=== PATIENT | male | born 1965 | race Caucasian/White ===

== ENCOUNTER 2022-03-17 09:10 | Inpatient (IN) | payer OTHER ==
[~2022-03-17] VITALS: Ht 167.6 cm; Wt 89.8 kg
--- NOTE | 2022-03-17 09:22 | NUR ---
MONISHA Curiel FROM HOME FOUND ON THE FLOOR, PT WAS DRINKING LAST NIGHT. ATTACHED TO MONITOR, HERAT RATE I ELEVATED, AWARE. PT PLACED ON 3L NC. DR PERLA AT BEDSIDE, AWAITING ORDERS.
[2022-03-17] MEDS ORDERED: IV NS 0.9% 1,000 ML BAG IV ONE (09:30)
[2022-03-17 10:03] LABS: BASOPHILS # (AUTO) 0.1 K/uL (0.0-0.2); BASOPHILS % (AUTO) 0.8 % (0.0-2.0); EOSINOPHILS % (AUTO) 0.1 % (0.0-6.0); HEMATOCRIT 39 % (39-51); HEMOGLOBIN 12.7 g/dL (13.5-17.5); LYMPHOCYTES % (AUTO) 10.3 % (20.0-44.0); MEAN CORPUSCULAR HGB CONC 33 g/dl (31.0-36.0); MEAN CORPUSCULAR VOLUME 93 fL (80-96); MONOCYTES # (AUTO) 0.5 K/uL (0.1-1.30); MONOCYTES % (AUTO) 5.5 % (2.0-12.0); NEUTROPHILS # (AUTO) 7.8 K/uL (1.8-8.9); NEUTROPHILS % (AUTO) 83.3 % (43.0-81.0); PLATELET COUNT (AUTO) 100 K/uL (150-450); RED BLOOD CELL COUNT(AUTO) 4.19 MIL/uL (4.5-6.0); WHITE BLOOD COUNT (AUTO) 9.4 K/uL (4.3-11.0)
[2022-03-17 10:26] LABS: ALANINE AMINOTRANSFERASE 124 U/L (12-78); ALBUMIN 3.3 g/dL (3.4-5.0); ALKALINE PHOSPHATASE 56 U/L (46-116); ASPARTATE AMINOTRANSFERASE 211 U/L (15-37); BILIRUBIN,DIRECT 0.4 mg/dL (0.0-0.2); BILIRUBIN,TOTAL 0.8 mg/dL (0.2-1.0); CALCIUM, SERUM 8.5 mg/dL (8.5-10.1); CARBON DIOXIDE 21 mmol/L (21-32); CHLORIDE 102 mmol/L (98-107); CREATININE 0.9 mg/dL (0.6-1.3); GLUCOSE 103 mg/dL (74-106); SODIUM SERUM 140 mmol/L (136-145); TOTAL PROTEIN, SERUM 7.2 g/dL (6.4-8.2); UREA NITROGEN, BLOOD 11 mg/dL (7-18)
[2022-03-17 10:32] LABS: MAGNESIUM 1.6 mg/dL (1.8-2.4)
[2022-03-17 10:33] LABS: THYROID STIMULATING HORMONE 0.493 uIU/mL (0.358-3.74)
[2022-03-17 10:36] LABS: SERUM AMMONIA 19 umol/L (11-32)
--- NOTE | 2022-03-17 10:53 | NUR ---
DORA COLLECTED AND SENT
[2022-03-17] MEDS ORDERED: LORAZEPAM 1 MG TABLET PO ONE (11:30)
--- NOTE | 2022-03-17 11:40 | NUR ---
URINE COLLECTED AND SENT TO LAB
--- NOTE | 2022-03-17 11:42 | NUR ---
CALLED NURSING SUP REGARDING PT BED
[2022-03-17] MEDS ORDERED: LORAZEPAM 1 MG TABLET ONE (11:49)
--- NOTE | 2022-03-17 12:38 | NUR ---
STEVEN MOTHER LEFT CONTACT # [phone]
--- NOTE | 2022-03-17 12:58 | NUR ---
GOING TO TELE 309.1, ADMITTING AWARE.
--- NOTE | 2022-03-17 13:08 | NUR ---
REPORT GIVEN TO NURSE COFFMAN FOR MARTI
--- NOTE | 2022-03-17 13:31 | NUR ---
THE PATIENT IS TAKEN TO ROOM 309 IN STABLE CONDITON AND PER ACLS POLICY.
[2022-03-17] MEDS ORDERED: ONDANSETRON HCL/PF 4 MG/2 ML VIAL IVP PRN (15:00)
[2022-03-17] MEDS ORDERED: MAGNESIUM HYDROXIDE 30 ML UDC PO PRN (15:00)
[2022-03-17] MEDS ORDERED: POTASSIUM CHLORIDE 20 MEQ TAB.PRT.SR PO ONE (15:00)
[2022-03-17] MEDS: THIAMINE HCL 100 MG TABLET PO SCH (16:05)
[2022-03-17] MEDS: FOLIC ACID 1 MG TABLET PO SCH (16:05)
[2022-03-17] MEDS: IV NS 0.9% 1,000 ML IV PRN (16:05)
[2022-03-17] MEDS: CHLORDIAZEPOXIDE HCL 25 MG CAPSULE PO SCH ×2 (16:05→20:21)
[2022-03-17] MEDS: CEFTRIAXONE 1 G in IV D5W 50 ML IV SCH (18:29)
--- NOTE | 2022-03-17 19:00 | NUR ---
RN opening notes Received Pt from morning nurse. Pt is sitting in bed comfortably. Pt is alert and orientedX2-3 with episode of confusion. On 2 L NC. No SOB. No S/s of distress noted. IV site at NIRAJ# 20 is clean, intact and infusing well NS@ 100ml/hr. Pt keep refusing tele monitor. Explained risks and benefits. Dr. Fajardo is aware and informed. Safety precautions is maintained. Bed at low position, brakes locked, side rails upX3, bed alarm is on, hob elevated and call light is within reach. Will continue to monitor.
--- NOTE | 2022-03-17 19:04 | NUR ---
RN NOTE PT LYING IN BED, IN O2 VIA NC @2L. NOT IN RESPI DISTRESS. WITH IV ACCESS ON NIRAJ G20 WITH IVF NS @100. TOLERATING WELL. DUE MEDS GIVEN, SAFETY MAINTAINED. PM CARE RENDERED.
[2022-03-17 20:00] VITALS: BP 134/84
--- NOTE | 2022-03-17 20:14 | NUR ---
RN notes Pt is trying to get out the bed many times. Pt is not following command and directions. Explained several times. informed and notified Dr. Fajardo. ordered ativan 2mg/iv/once. Order carry out.
[2022-03-17] MEDS ORDERED: LORAZEPAM INJ 2 MG/ML VIAL IV ONE (20:30)
--- NOTE | 2022-03-17 20:31 | NUR ---
RN notes Administered ativan 2 mg/iv/one time as ordered per MD ordered. Safety precautions is maintained. Will continue to monitor.
--- NOTE | 2022-03-17 22:05 | NUR ---
RN notes Pt is trying to get out the bed and keep removing lines and equipments many times. Informed and notified Dr. Ramsay. Pt is not following commands and directions. MD ordered for a sitter. Charge nurse is aware and informed. Ordered carry out. Will continue to monitor.
[2022-03-18] VITALS: BP 142/81
[2022-03-18] MEDS: IV NS 0.9% 1,000 ML IV PRN ×2 (02:13→10:58)
[2022-03-18 04:00] VITALS: BP 123/90
[2022-03-18] MEDS: CHLORDIAZEPOXIDE HCL 25 MG CAPSULE PO SCH ×3 (04:39→20:28)
[2022-03-18 06:06] LABS: BASOPHILS # (AUTO) 0.1 K/uL (0.0-0.2); BASOPHILS % (AUTO) 0.9 % (0.0-2.0); EOSINOPHILS % (AUTO) 0.7 % (0.0-6.0); HEMATOCRIT 38 % (39-51); HEMOGLOBIN 12.5 g/dL (13.5-17.5); LYMPHOCYTES # (AUTO) 1.1 K/uL (0.8-4.8); LYMPHOCYTES % (AUTO) 12.7 % (20.0-44.0); MEAN CORPUSCULAR HGB CONC 33 g/dl (31.0-36.0); MEAN CORPUSCULAR VOLUME 91 fL (80-96); MONOCYTES # (AUTO) 0.5 K/uL (0.1-1.30); MONOCYTES % (AUTO) 6.2 % (2.0-12.0); NEUTROPHILS # (AUTO) 6.7 K/uL (1.8-8.9); NEUTROPHILS % (AUTO) 79.5 % (43.0-81.0); PLATELET COUNT (AUTO) 99 K/uL (150-450); RED BLOOD CELL COUNT(AUTO) 4.12 MIL/uL (4.5-6.0); WHITE BLOOD COUNT (AUTO) 8.5 K/uL (4.3-11.0)
--- NOTE | 2022-03-18 06:40 | NUR ---
RN closing notes Pt is laying in bed comfortably. Pt is alert and orientedX2 with episode of confusion. On 2 L NC. No SOB. No S/s of distress noted. Routine meds were given as ordered. IV site at NIRAJ# 20 is clean, intact and infusing well NS@ 100ml/hr. Kept Pt clean, dry and comfortable. Safety precautions is maintained. Bed at low position, brakes locked, side rails upX3, bed alarm is on, hob elevated and call light is within reach. Will endorse to am nurse for MARTI.
[2022-03-18 06:53] LABS: ALBUMIN 2.8 g/dL (3.4-5.0); BILIRUBIN,DIRECT 0.4 mg/dL (0.0-0.2); BILIRUBIN,TOTAL 0.8 mg/dL (0.2-1.0); CALCIUM, SERUM 8.3 mg/dL (8.5-10.1); CREATININE 0.8 mg/dL (0.6-1.3); MAGNESIUM 1.5 mg/dL (1.8-2.4); PHOSPHORUS 2.1 mg/dL (2.5-4.9); POTASSIUM 3.3 mmol/L (3.5-5.1); TOTAL PROTEIN, SERUM 6.5 g/dL (6.4-8.2)
--- NOTE | 2022-03-18 07:20 | NUR ---
RN opening notes Received patient in bed. Pt is alert and oriented X2-3 with episodes of confusion. On 2 L NC saturating at 94%. No SOB. No S/s of distress noted. With IV site at NIRAJ# 20 with IVF of NS@ 100ml/hr. Pt keep refusing tele monitor. Dr. Fajardo is aware. Safety precautions is maintained. Bed at low position, brakes locked, side rails upX3, bed alarm is on, hob elevated and call light is within reach. Will continue to monitor.
[2022-03-18] MEDS: PANTOPRAZOLE 40 MG TABLET.DR PO SCH (07:52)
[2022-03-18] MEDS: FOLIC ACID 1 MG TABLET PO SCH (08:25)
[2022-03-18] MEDS: THIAMINE HCL 100 MG TABLET PO SCH (08:25)
[2022-03-18] MEDS ORDERED: LORAZEPAM INJ 2 MG/ML VIAL IV PRN (10:30)
[2022-03-18] MEDS ORDERED: Magnesium 1GM/D5W 100ML PREMIX 100 ML IV SCH (11:00)
[2022-03-18] MEDS ORDERED: POTASSIUM CHLORIDE 20 MEQ POWDER PACKET PO ONE (11:00)
[2022-03-18 11:31] LABS: BAND % (MANUAL) 2 % (0.0-5.0); LYMPHOCYTES % (MANUAL) 18 % (16-48); MONOCYTES % (MANUAL) 9 % (0-11.0); NEUTROPHILS % (MANUAL) 71 (42-76)
[2022-03-18 11:32] LABS: BASOPHILS % (MANUAL) 0 % (0.0-2.0); EOSINOPHILS % (MANUAL) 0 % (0-4)
[2022-03-18] MEDS: CEFTRIAXONE 1 G in IV D5W 50 ML IV SCH (15:30)
[2022-03-18] MEDS ORDERED: K PHOS NEUTRAL 250 MG TABLET PO ONE (15:30)
--- NOTE | 2022-03-18 18:51 | NUR ---
RN CLOSING NOTES Patient in bed. Pt is alert and oriented X2-3 with episodes of confusion. On 2 L NC saturating at 97%. No SOB. No S/s of distress noted. With IV site at NIRAJ# 20 with IVF of NS@ 150ml/hr. Pt keep refusing tele monitor. Dr. Fajardo is aware. Safety precautions is maintained. Bed at low position, brakes locked, side rails upX3, bed alarm is on, hob elevated and call light is within reach. Sitter at bedside. Will endorse to night nurse for continuity of care.
--- NOTE | 2022-03-18 18:51 | NUR ---
RESIDENT CAREGIVER CLOSING NOTES PATIENT RESTING IN BED COMFORTABLY, A/OX1, CONFUSED; PATIENT ON OXYGEN AT 4LPM VIA NASAL CANULA WITH BREATHING EVEN AND UNLABORED; PATIENT ON TELE MONITOR CONTROLLED A.FIB AND SINUS PILAR WHEN SLEEPING AT 57. PATIENT WITH G-TUBE FEEDING ON JEVITY 1.2 AT 55ML/HR, TOLERATING FEEDING WELL. WITH IV ACCESS ON L AC #20g ON SALINE LOCK, PATENT AND INTACT.WITH BILATERAL RESTRAINTS WITH GOOD CIRCULATION AND NO COMPLAINTS OF DISCOMFORT AT THIS TIME. SAFETY PRECAUTIONS IN PLACE WITH BED LOCKED IN LOW POSITION; SIDE RAILSX3, CALL LIGHT WITHIN REACH; WILL ENSORSE TO NIGHT NURSE FOR CONTINUITY OF CARE. Addendum: 03/18/22 at 1853 by ANETTE NUNES RN ERROR. DISREGARD ABOVE NOTES, WRONG PATIENT
--- NOTE | 2022-03-18 19:00 | NUR ---
RN opening notes Pt is laying in bed comfortably with a sitter at the bedside. Pt is alert and orientedX2-3 with episode of confusion. On 2 L NC. No SOB. No S/s of distress noted. IV site at NIRAJ# 20 is clean, intact and infusing well NS@ 100ml/hr. Pt refuses tele monitor. Explained risks and benefits. Safety precautions is maintained. Sitter at the bedside. Bed at low position, brakes locked, side rails upX3, bed alarm is on, hob elevated and call light is within reach. Will continue to monitor.
[2022-03-18 20:00] VITALS: BP 139/76
[2022-03-19] VITALS: BP 139/90
[2022-03-19] MEDS: IV NS 0.9% 1,000 ML IV PRN ×3 (00:26→23:22)
[2022-03-19] MEDS: PANTOPRAZOLE 40 MG TABLET.DR PO SCH (07:30)
--- NOTE | 2022-03-19 07:30 | NUR ---
RN OPENING NOTES Patient in bed. Pt is alert and oriented X2-3 with episodes of confusion. On 2 L NC saturating at 98%. No SOB, No S/s of distress noted. IV site at NIRAJ# 20 with IVF of NS@ 150ml/hr, right foot iv access patent and intact. Patient keep refusing tele monitor. Dr. Fajardo is aware. Safety precautions is maintained. Bed at low position, brakes locked, side rails upX3, bed alarm is on, HOB elevated and call light is within reach. Sitter at bedside. Will continue to monitor accordingly
--- NOTE | 2022-03-19 07:30 | NUR ---
RN closing notes Pt is laying in bed comfortably. Pt is alert and orientedX2 with episode of confusion. On 2 L NC. No SOB. No S/s of distress noted. Routine meds were given as ordered. IV site at NIRAJ# 20 is clean, intact and infusing well NS@ 150ml/hr. Iv at R foot #20 is clean and intact. Kept Pt clean, dry and comfortable. Sitter at the bedside. Safety precautions is maintained. Bed at low position, brakes locked, side rails upX3, bed alarm is on, hob elevated and call light is within reach. Will endorse to am nurse for MARTI.
[2022-03-19 08:00] VITALS: BP 135/97
--- NOTE | 2022-03-19 08:15 | NUR ---
protonix non administer, given by the night nurse signed at paper MAR
[2022-03-19 08:23] LABS: BASOPHILS % (AUTO) 0.7 % (0.0-2.0); EOSINOPHILS % (AUTO) 3.1 % (0.0-6.0); HEMATOCRIT 36 % (39-51); LYMPHOCYTES # (AUTO) 1.5 K/uL (0.8-4.8); LYMPHOCYTES % (AUTO) 25.2 % (20.0-44.0); MEAN CORPUSCULAR HGB CONC 34 g/dl (31.0-36.0); MEAN CORPUSCULAR VOLUME 92 fL (80-96); MONOCYTES # (AUTO) 0.5 K/uL (0.1-1.30); MONOCYTES % (AUTO) 7.8 % (2.0-12.0); NEUTROPHILS # (AUTO) 3.7 K/uL (1.8-8.9); NEUTROPHILS % (AUTO) 63.2 % (43.0-81.0); PLATELET COUNT (AUTO) 106 K/uL (150-450); RED BLOOD CELL COUNT(AUTO) 3.86 MIL/uL (4.5-6.0); WHITE BLOOD COUNT (AUTO) 5.8 K/uL (4.3-11.0)
[2022-03-19] MEDS: THIAMINE HCL 100 MG TABLET PO SCH (08:55)
[2022-03-19] MEDS: FOLIC ACID 1 MG TABLET PO SCH (08:55)
[2022-03-19 09:25] LABS: CALCIUM, SERUM 7.6 mg/dL (8.5-10.1); CREATININE 0.8 mg/dL (0.6-1.3); MAGNESIUM 1.8 mg/dL (1.8-2.4); PHOSPHORUS 3.5 mg/dL (2.5-4.9); POTASSIUM 3.1 mmol/L (3.5-5.1)
[2022-03-19 12:00] VITALS: BP 110/58
[2022-03-19] MEDS ORDERED: LEVETIRACETAM (250 MG) 250 MG TABLET PO SCH (12:00)
[2022-03-19] MEDS ORDERED: clonazePAM 1 MG TABLET PO PRN (12:00)
[2022-03-19] MEDS: LORATADINE 10 MG TABLET PO SCH (12:37)
[2022-03-19] MEDS: DIVALPROEX SODIUM 500 MG TABLET.DR PO SCH ×2 (12:37→21:03)
[2022-03-19] MEDS: busPIRone 5 MG TABLET PO SCH ×2 (12:37→17:36)
[2022-03-19] MEDS: FINASTERIDE (5 MG) 5 MG TABLET PO SCH (12:37)
[2022-03-19] MEDS: CHLORDIAZEPOXIDE HCL 25 MG CAPSULE PO SCH ×2 (12:37→21:03)
[2022-03-19] MEDS: CEFTRIAXONE 1 G in IV D5W 50 ML IV SCH (14:28)
[2022-03-19 16:00] VITALS: BP 116/90
[2022-03-19] MEDS: POTASSIUM CHLORIDE 20 MEQ TAB.PRT.SR PO SCH ×2 (16:16→17:37)
[2022-03-19] MEDS: ACETAMINOPHEN 325 MG TABLET PO PRN (18:12)
--- NOTE | 2022-03-19 18:50 | NUR ---
RN CLOSING NOTES Patient in bed. alert and oriented X2-3 with episodes of confusion. On 2 L NC saturating at 98%. No SOB, No S/s of distress noted. IV site at NIRAJ# 20 with IVF of NS@ 150ml/hr, right foot iv access patent and intact. Patient keep refusing tele monitor. Dr. Fajardo is aware. Safety precautions is maintained. Bed at low position, brakes locked, side rails upX3, bed alarm is on, HOB elevated and call light is within reach. Sitter at bedside. Needs attended and anticipated. Will endorse to night nurse for continuity of care
--- NOTE | 2022-03-19 19:25 | NUR ---
CARROT BUNCHER OPENING NOTE PATIENT IN BED, ALERT/ORIENTED X 2 WITH PERIODS OF CONFUSION. PT STABLE ON 2 LPM OF OXGEN VIA NASAL CANNULA, NO S/S OF DISTRESS OR SOB NOTED, BREATHING EVEN AND UNLABORED. RIGHT FOOT IV ACCESS INTACT AND INFUSING NS @ 150 ML/HR, NIRAJ IV ACCESS INTACT AND SALINE LOCKED. PATIENT CONTINUES TO REFUSE TELE MONITOR, EXPLAINED RISKS AND BENEFIT BUT PT STILL REFUSED. SAFETY MEASURES IN PLACE: CALL LIGHT WITHIN REACH, SIDE RAILS UP X 3, BED LOCKED IN LOWEST POSITION, BED ALARM ON. WILL CONTINUE TO MONITOR PATIENT
[2022-03-19 20:00] VITALS: BP 122/87
[2022-03-19] MEDS: NEOMY SULF/BACITRAC ZN/POLY 15 GM TUBE TP SCH (21:00)
[2022-03-19] MEDS: ATORVASTATIN 10 MG TABLET PO SCH (21:03)
[2022-03-19] MEDS: ZIPRASIDONE 20 MG CAPSULE PO SCH (21:04)
[2022-03-19] MEDS ORDERED: DOXEPIN HCL 10 MG CAPSULE PO PRN (22:00)
[2022-03-19] MEDS: SERTRALINE HCL 50 MG TABLET PO SCH (22:04)
[2022-03-19] MEDS: clonazePAM 1 MG TABLET PO SCH (22:04)
[2022-03-19] MEDS: OLANZAPINE 10 MG TABLET PO SCH (22:39)
[2022-03-19] MEDS: QUETIAPINE FUMARATE 100 MG TABLET PO SCH (23:00)
--- NOTE | 2022-03-19 23:00 | NUR ---
QUANTITATIVE SOFTWARE ENGINEER NOTE PATIENT ATTEMPTING TO GET OUT OF BED, PULLED OUT RIGHT FOOT IV ACCESS. NIRAJ #20G IV ACCESS INTACT AND FLUSHING WELL, NOW INFUSING NS @ 150 ML/HR
--- NOTE | 2022-03-20 00:33 | NUR ---
COPY CHASER NOTE PATIENT REFUSED MIDNIGHT VITALS, HOWEVER, PER LUCHO SAINI DNP NOTE FROM TODAY, DOWNGRADE PATIENT TO MS Addendum: 03/20/22 at 0236 by TITA ARAGON RN [facility] 03/19/22
[2022-03-20] MEDS: CHLORDIAZEPOXIDE HCL 25 MG CAPSULE PO SCH ×3 (05:22→21:25)
[2022-03-20] MEDS: ACETAMINOPHEN 325 MG TABLET PO PRN ×3 (05:56→21:27)
[2022-03-20] MEDS: IV NS 0.9% 1,000 ML IV PRN ×2 (06:04→15:07)
--- NOTE | 2022-03-20 06:39 | NUR ---
MS RN CLOSING NOTE PATIENT SLEEPING IN BED, ALERT/ORIENTED X 2 WITH PERIODS OF CONFUSION. PT STABLE ON 2 LPM OF OXGEN VIA NASAL CANNULA, NO S/S OF DISTRESS OR SOB NOTED, BREATHING EVEN AND UNLABORED. NIRAJ #20G IV ACCESS INTACT AND INFUSING NS @ 150 ML/HR. MEDICATIONS GIVEN ORDERED, PT NEEDS MET THROUGHOUT SHIFT. PATIENT ATTEMPTED TO GET OUT OF BED A COUPLE TIMES TO USE BATHROOM, WAS ABLE TO AMBULATE WITH SBA. RIGHT FOOT IV ACCESS PULLED OUT WHEN ATTEMPTING TO GET OUT OF BED. PER LUCHO SAINI NOTE, DOWNGRADE TO MS, PT NOT ON TELE MONITOR. SAFETY MEASURES IN PLACE: CALL LIGHT WITHIN REACH, SIDE RAILS UP X 3, BED LOCKED IN LOWEST POSITION, BED ALARM ON. WILL ENDORSE TO DAY SHIFT NURSE FOR CONTINUITY OF CARE
--- NOTE | 2022-03-20 07:15 | NUR ---
RN OPENING NOTE PATIENT IN BED AWAKE, A/O X 2 WITH PERIODS OF CONFUSION. ON O2 @2 LPM VIA NASAL CANNULA, NO S/S OF DISTRESS OR SOB NOTED, BREATHING EVEN AND UNLABORED. NOTED IV ACCESS ON RIGHT UPPER ARM #20G, INTACT AND PATENT, INFUSING NS @ 150 ML/HR. SAFETY MEASURES IN PLACE. BED IN LOWEST AND LOCKED POSITION, BED ALARM ON, SIDE RAILS UP X4, CALL LIGHT PLACED WITHIN EASY REACH, WILL CONTINUE TO MONITOR PATIENT.
[2022-03-20 08:17] VITALS: BP 118/82
[2022-03-20] MEDS: THIAMINE HCL 100 MG TABLET PO SCH (08:52)
[2022-03-20] MEDS: busPIRone 5 MG TABLET PO SCH ×3 (08:52→17:06)
[2022-03-20] MEDS: LORATADINE 10 MG TABLET PO SCH (08:52)
[2022-03-20] MEDS: FINASTERIDE (5 MG) 5 MG TABLET PO SCH (08:52)
[2022-03-20] MEDS: PANTOPRAZOLE 40 MG TABLET.DR PO SCH (08:52)
[2022-03-20] MEDS: DIVALPROEX SODIUM 500 MG TABLET.DR PO SCH ×2 (08:52→21:24)
[2022-03-20] MEDS: FOLIC ACID 1 MG TABLET PO SCH (08:52)
[2022-03-20] MEDS: NEOMY SULF/BACITRAC ZN/POLY 15 GM TUBE TP SCH (10:56)
[2022-03-20] MEDS ORDERED: AMOX-427 PO (11:08)
[2022-03-20] MEDS ORDERED: CLON1TAB12 PO (11:08)
[2022-03-20] MEDS ORDERED: DOXE10CA PO (11:08)
[2022-03-20] MEDS ORDERED: ATOR10TA PO (11:08)
[2022-03-20] MEDS ORDERED: Folic Acid PO (11:08)
[2022-03-20] MEDS ORDERED: SERT50TA PO (11:08)
[2022-03-20] MEDS ORDERED: LORA10TA7 PO (11:08)
[2022-03-20] MEDS ORDERED: BUSP5TAB3 PO (11:08)
[2022-03-20] MEDS ORDERED: Quetiapine Fumarate PO (11:08)
[2022-03-20] MEDS ORDERED: FINA5TAB3 PO (11:08)
[2022-03-20] MEDS ORDERED: ZIPR20CA2 PO (11:08)
[2022-03-20] MEDS ORDERED: DIVA500T2 PO (11:08)
[2022-03-20] MEDS ORDERED: Olanzapine PO (11:08)
[2022-03-20 11:51] LABS: BASOPHILS # (AUTO) 0.1 K/uL (0.0-0.2); BASOPHILS % (AUTO) 1.3 % (0.0-2.0); HEMATOCRIT 35 % (39-51); HEMOGLOBIN 11.5 g/dL (13.5-17.5); LYMPHOCYTES # (AUTO) 1.5 K/uL (0.8-4.8); LYMPHOCYTES % (AUTO) 37.5 % (20.0-44.0); MEAN CORPUSCULAR HGB CONC 33 g/dl (31.0-36.0); MEAN CORPUSCULAR VOLUME 92 fL (80-96); MONOCYTES # (AUTO) 0.5 K/uL (0.1-1.30); MONOCYTES % (AUTO) 12.9 % (2.0-12.0); NEUTROPHILS # (AUTO) 1.8 K/uL (1.8-8.9); NEUTROPHILS % (AUTO) 44.3 % (43.0-81.0); PLATELET COUNT (AUTO) 127 K/uL (150-450); RED BLOOD CELL COUNT(AUTO) 3.79 MIL/uL (4.5-6.0)
[2022-03-20 12:04] LABS: CALCIUM, SERUM 7.5 mg/dL (8.5-10.1); CREATININE 0.7 mg/dL (0.6-1.3); PHOSPHORUS 3.3 mg/dL (2.5-4.9); POTASSIUM 3.2 mmol/L (3.5-5.1)
[2022-03-20 14:09] LABS: BAND % (MANUAL) 7 % (0.0-5.0); EOSINOPHILS % (MANUAL) 5 % (0-4); LYMPHOCYTES % (MANUAL) 32 % (16-48); MONOCYTES % (MANUAL) 13 % (0-11.0); NEUTROPHILS % (MANUAL) 43 (42-76)
[2022-03-20] MEDS: CEFTRIAXONE 1 G in IV D5W 50 ML IV SCH (15:07)
[2022-03-20 16:04] VITALS: BP 135/76
[2022-03-20] MEDS ORDERED: POTASSIUM CHLORIDE 20 MEQ TAB.PRT.SR PO ONE (18:00)
--- NOTE | 2022-03-20 18:48 | NUR ---
RN CLOSING NOTES PATIENT IN BED ASLEEP, REMAINS A/O X 2 WITH PERIODS OF CONFUSION. CONTINUE ON O2 @2 LPM VIA NASAL CANNULA, NO SOB NOTED, BREATHING EVEN AND UNLABORED. NEW IV ACCESS ON LEFT FORE ARM #22G, INTACT AND PATENT WITH NS @ 150 ML/HR INFUSING WELL. SAFETY MEASURES MAINTAINED. BED IN LOWEST AND LOCKED POSITION, BED ALARM ON, SIDE RAILS UP X4, CALL LIGHT PLACED WITHIN EASY REACH, WILL ENDORSE TO NEXT SHIFT FOR MARTI.
--- NOTE | 2022-03-20 19:20 | NUR ---
MS RN OPENING NOTE RECEIVED PATIENT IN BED; AWAKE, ALERT AND ORIENTED X2 WITH PERIODS OF CONFUSION. ON O2 INHALATION @2 LPM VIA NASAL CANNULA; TOLERATING WELL. BREATHING EVEN AND NONLABORED. NO SOB NOTED. IN NO ACUTE DISTRESS. WITH IV ACCESS ON LEFT FOREARM 20G; INTACT AND PATENT INFUSING WITH NS @ 150 ML/HR; FLUSHES WELL. SAFETY MEASURES IMPLEMENTED; CALL LIGHT WITHIN REACH, SIDE RAILS UP X2, BED IN LOWEST LOCKED POSITION. WILL CONTINUE TO MONITOR PATIENT.
[2022-03-20 20:00] VITALS: BP 142/94
[2022-03-20 21:15] VITALS: BP 142/94
[2022-03-20] MEDS: ZIPRASIDONE 20 MG CAPSULE PO SCH (21:25)
[2022-03-20] MEDS: QUETIAPINE FUMARATE 100 MG TABLET PO SCH (21:26)
[2022-03-20] MEDS: ATORVASTATIN 10 MG TABLET PO SCH (21:26)
[2022-03-20] MEDS: clonazePAM 1 MG TABLET PO SCH (21:26)
[2022-03-20] MEDS: SERTRALINE HCL 50 MG TABLET PO SCH (21:27)
[2022-03-20] MEDS: OLANZAPINE 10 MG TABLET PO SCH (21:27)
[2022-03-21] MEDS: ACETAMINOPHEN 325 MG TABLET PO PRN ×2 (04:19→09:56)
[2022-03-21] MEDS: CHLORDIAZEPOXIDE HCL 25 MG CAPSULE PO SCH ×2 (04:19→12:53)
--- NOTE | 2022-03-21 05:20 | NUR ---
RN NOTE IV SITE LEAKING; PRESSURE DRESSING DONE. MULTIPLE ATTEMPTS OF REINSERTION DONE. PATIENT REFUSED TO HAVE IV REINSERTION AGAIN OF THIS TIME.
--- NOTE | 2022-03-21 07:00 | NUR ---
MS RN CLOSING NOTE PATIENT IN BED; AWAKE, A/O X2 WITH PERIODS OF CONFUSION. ON O2 INHALATION @2 LPM VIA NASAL CANNULA; TOLERATING WELL. RESPIRATION EVEN AND NONLABORED. NO SOB NOTED. IN NO ACUTE DISTRESS. ALL DUE MEDS GIVEN ORDERED. NO IV ACCESS. SAFETY MEASURES IN PLACE; CALL LIGHT WITHIN REACH, SIDE RAILS UP X2, BED IN LOWEST LOCKED POSITION. ENDORSED TO MORNING SHIFT FOR MARTI.
--- NOTE | 2022-03-21 07:10 | NUR ---
ms rn received on bed, awake,alert,oriented x4, no iv at this time, md aware per night rn, respirations even and unlabored,no sob noted,abdomen soft,positive bowel sounds,denies pain at this time, will monitor patient.
[2022-03-21 07:48] LABS: HEMATOCRIT 35 % (39-51); HEMOGLOBIN 11.5 g/dL (13.5-17.5); MEAN CORPUSCULAR HGB CONC 33 g/dl (31.0-36.0); MEAN CORPUSCULAR VOLUME 92 fL (80-96); RED BLOOD CELL COUNT(AUTO) 3.81 MIL/uL (4.5-6.0); WHITE BLOOD COUNT (AUTO) 4.6 K/uL (4.3-11.0)
[2022-03-21 07:49] LABS: BASOPHILS % (AUTO) 1.1 % (0.0-2.0); EOSINOPHILS % (AUTO) 3.2 % (0.0-6.0); LYMPHOCYTES # (AUTO) 1.9 K/uL (0.8-4.8); LYMPHOCYTES % (AUTO) 40.1 % (20.0-44.0); MONOCYTES # (AUTO) 0.7 K/uL (0.1-1.30); MONOCYTES % (AUTO) 14.9 % (2.0-12.0); NEUTROPHILS # (AUTO) 1.9 K/uL (1.8-8.9); NEUTROPHILS % (AUTO) 40.7 % (43.0-81.0); PLATELET COUNT (AUTO) 143 K/uL (150-450)
[2022-03-21 07:54] LABS: CREATININE 0.8 mg/dL (0.6-1.3); MAGNESIUM 1.8 mg/dL (1.8-2.4); PHOSPHORUS 3.3 mg/dL (2.5-4.9); POTASSIUM 3.4 mmol/L (3.5-5.1)
[2022-03-21 08:00] VITALS: BP 141/96
[2022-03-21] MEDS: FOLIC ACID 1 MG TABLET PO SCH (08:50)
[2022-03-21] MEDS: LORATADINE 10 MG TABLET PO SCH (08:51)
[2022-03-21] MEDS: FINASTERIDE (5 MG) 5 MG TABLET PO SCH (08:51)
[2022-03-21] MEDS: busPIRone 5 MG TABLET PO SCH ×2 (08:51→12:55)
[2022-03-21] MEDS: DIVALPROEX SODIUM 500 MG TABLET.DR PO SCH (08:51)
[2022-03-21] MEDS: PANTOPRAZOLE 40 MG TABLET.DR PO SCH (08:51)
[2022-03-21] MEDS: THIAMINE HCL 100 MG TABLET PO SCH (08:51)
[2022-03-21] MEDS: NEOMY SULF/BACITRAC ZN/POLY 15 GM TUBE TP SCH (08:53)
--- NOTE | 2022-03-21 09:00 | NUR ---
ms [place] breakfast served,due meds given,tolerated well.
--- NOTE | 2022-03-21 10:00 | NUR ---
ms rn was seen by md, to be discharge today.
[2022-03-21] MEDS ORDERED: POTASSIUM CHLORIDE 20 MEQ TAB.PRT.SR PO ONE (11:30)
[2022-03-21] MEDS ORDERED: clonazePAM 1 MG TABLET PO SCH (11:30)
--- NOTE | 2022-03-21 13:00 | NUR ---
ms rn patient ready to go rx fax to pharmacy of choice.
--- NOTE | 2022-03-21 13:30 | NUR ---
ms rn patient refused to take a picture of his bruises.
--- NOTE | 2022-03-21 14:00 | NUR ---
ms rn patient dc home accompaneid by mom.
== END 2022-03-21 13:30 | disposition home or self-care (01) | DRG 137 ==
LOC: ER 09:14 → TELE 13:02 → MED 03-20 06:48
PROVIDERS: ADMIT Nurse Practitioner Acute Care; ATTEND Nurse Practitioner Acute Care
DX: J15.6 Pneumonia due to other Gram-negative bacteria (principal); D61.818 Other pancytopenia; M62.82 Rhabdomyolysis; E44.1 Mild protein-calorie malnutrition; E88.09 Other disorders of plasma-protein metabolism, not elsewhere classified; G40.909 Epilepsy, unspecified, not intractable, without status epilepticus; E83.42 Hypomagnesemia; F10.129 Alcohol abuse with intoxication, unspecified; Y90.2 Blood alcohol level of 40-59 mg/100 ml; Z20.822 Contact with and (suspected) exposure to COVID-19; W19.XXXA Unspecified fall, initial encounter; Y92.009 Unspecified place in unspecified non-institutional (private) residence as the place of occurrence of the external cause; M50.321 Other cervical disc degeneration at C4-C5 level; M48.02 Spinal stenosis, cervical region; Z79.899 Other long term (current) drug therapy; E87.6 Hypokalemia; R74.01 Elevation of levels of liver transaminase levels; F31.9 Bipolar disorder, unspecified; K76.0 Fatty (change of) liver, not elsewhere classified; S00.31XA Abrasion of nose, initial encounter; X58.XXXA Exposure to other specified factors, initial encounter; Y92.9 Unspecified place or not applicable; F10.139 Alcohol abuse with withdrawal, unspecified
CPT/HCPCS: 36415; 70450-TC; 71045-TC; 72125-TC; 72170-TC; 73060-TC; 76705-TC; 80048-TC; 80061-TC; 80076-TC; 80164-TC; 82140-TC; 82550-TC; 82553; 82962-TC; 83605-TC; 83735-TC; 84100-TC; 84443-TC; 84484-TC; 85025-TC; 85730-TC; 87081-TC; 94799-TC; 97116-TC; 97530-TC; C9803; G0378; G0480; J0696; J2060; J3475; J7030; J7060

== ENCOUNTER 2022-04-18 15:07 | Emergency (ER) | payer OTHER ==
[~2022-04-18] VITALS: Ht 175.3 cm; Wt 90.3 kg
[~2022-04-18 15:07] MED LIST: AMOX-427 PO; ATOR10TA PO; BUSP5TAB3 PO; CLON1TAB12 PO; DIVA500T2 PO; DOXE10CA PO; FINA5TAB3 PO; Folic Acid PO; LORA10TA7 PO; Olanzapine PO; Quetiapine Fumarate PO; SERT50TA PO; ZIPR20CA2 PO
--- NOTE | 2022-04-18 15:30 | NUR ---
DR WALLS AT BEDSIDE FOR EVAL
--- NOTE | 2022-04-18 16:00 | NUR ---
DAIRY CATTLE FARM WORKER AT BED SIDE
[2022-04-18 16:16] LABS: BASOPHILS % (AUTO) 0.6 % (0.0-2.0); HEMATOCRIT 41 % (39-51); HEMOGLOBIN 13.4 g/dL (13.5-17.5); LYMPHOCYTES # (AUTO) 2.4 K/uL (0.8-4.8); LYMPHOCYTES % (AUTO) 36.5 % (20.0-44.0); MEAN CORPUSCULAR HGB CONC 32 g/dl (31.0-36.0); MEAN CORPUSCULAR VOLUME 90 fL (80-96); MONOCYTES # (AUTO) 0.4 K/uL (0.1-1.30); MONOCYTES % (AUTO) 5.8 % (2.0-12.0); NEUTROPHILS # (AUTO) 3.8 K/uL (1.8-8.9); NEUTROPHILS % (AUTO) 56.1 % (43.0-81.0); PLATELET COUNT (AUTO) 163 K/uL (150-450); RED BLOOD CELL COUNT(AUTO) 4.59 MIL/uL (4.5-6.0); WHITE BLOOD COUNT (AUTO) 6.7 K/uL (4.3-11.0)
[2022-04-18 16:52] LABS: CALCIUM, SERUM 8.9 mg/dL (8.5-10.1); CARBON DIOXIDE 25 mmol/L (21-32); CHLORIDE 109 mmol/L (98-107); GLUCOSE 91 mg/dL (74-106); POTASSIUM 3.8 mmol/L (3.5-5.1); SODIUM SERUM 144 mmol/L (136-145); UREA NITROGEN, BLOOD 15 mg/dL (7-18)
[2022-04-18 17:24] VITALS: BP 125/70
--- NOTE | 2022-04-18 17:24 | NUR ---
Patient discharged to home in stable condition. Written and verbal after care instructions given. Patient verbalizes understanding of instruction.
== END 2022-04-18 17:25 | disposition home or self-care (01) ==
LOC: ER 15:13
DX: R06.00 Dyspnea, unspecified (principal); F31.9 Bipolar disorder, unspecified; Z79.899 Other long term (current) drug therapy
CPT/HCPCS: 36415; 71045-TC; 80048-TC; 83880; 84484-TC; 85025-TC

== ENCOUNTER 2022-10-20 09:49 | Inpatient (IN) | payer OTHER ==
[~2022-10-20] VITALS: Ht 175.3 cm; Wt 71.2 kg
--- NOTE | 2022-10-20 09:49 | NUR ---
TO ER BED 9.BIB RA 878 PT WAS WALKING AORUND THE NEIGHBORHOOD AND FELT BILATERAL LEG WEAKNESS AND FELL,NO TRAUMA, DENIES LOC OR HITTING HIS HEAD, C/O L TOE PAIN. PAIN 7/[address] WALLS AT BEDSIDE. AWAITING MD AMES.
--- NOTE | 2022-10-20 09:55 | NUR ---
Brijesh crump in EDM - 10/20/22 at 1013 by WILLIAN EMMA RA 878 PT WAS WALKING AORUND THE NEIGHBORHOOD AND FELT BILATERAL LEG WEAKNESS AND FELL,NO TRAUMA, DENIES LOC OR HITTING HIS HEAD, C/O L TOE PAIN
--- NOTE | 2022-10-20 10:18 | NUR ---
iv inserted left hand, bld drawn sent to lab
--- NOTE | 2022-10-20 10:29 | NUR ---
urine collected sent to lab
[2022-10-20 10:33] LABS: BASOPHILS % (AUTO) 0.5 % (0.0-2.0); EOSINOPHILS % (AUTO) 1.4 % (0.0-6.0); HEMATOCRIT 42 % (39-51); HEMOGLOBIN 13.8 g/dL (13.5-17.5); LYMPHOCYTES # (AUTO) 1.1 K/uL (0.8-4.8); LYMPHOCYTES % (AUTO) 28.3 % (20.0-44.0); MEAN CORPUSCULAR HGB CONC 33 g/dl (31.0-36.0); MEAN CORPUSCULAR VOLUME 95 fL (80-96); MONOCYTES # (AUTO) 0.4 K/uL (0.1-1.30); MONOCYTES % (AUTO) 8.9 % (2.0-12.0); NEUTROPHILS # (AUTO) 2.5 K/uL (1.8-8.9); NEUTROPHILS % (AUTO) 60.9 % (43.0-81.0); PLATELET COUNT (AUTO) 154 K/uL (150-450); RED BLOOD CELL COUNT(AUTO) 4.49 MIL/uL (4.5-6.0)
--- NOTE | 2022-10-20 10:36 | NUR ---
Brijesh crump in [facility] - 10/20/22 at 1038 by FADI glucose checked 12omg/dl
--- NOTE | 2022-10-20 10:38 | NUR ---
glucose checked 120mg/dl
[2022-10-20 10:45] LABS: CALCIUM, SERUM 9.4 mg/dL (8.5-10.1); CARBON DIOXIDE 19 mmol/L (21-32); CHLORIDE 104 mmol/L (98-107); CREATININE 1.3 mg/dL (0.6-1.3); GLUCOSE 101 mg/dL (74-106); POTASSIUM 3.8 mmol/L (3.5-5.1); SODIUM SERUM 142 mmol/L (136-145); UREA NITROGEN, BLOOD 16 mg/dL (7-18)
[2022-10-20 10:51] LABS: ALANINE AMINOTRANSFERASE 131 U/L (12-78); ALBUMIN 3.7 g/dL (3.4-5.0); ALCOHOL, BLOOD < 3 mg/dL (0-0); ALKALINE PHOSPHATASE 61 U/L (46-116); ASPARTATE AMINOTRANSFERASE 244 U/L (15-37); BILIRUBIN,DIRECT 0.2 mg/dL (0.0-0.2); BILIRUBIN,TOTAL 0.4 mg/dL (0.2-1.0); TOTAL PROTEIN, SERUM 7.2 g/dL (6.4-8.2)
[2022-10-20 10:55] LABS: THYROID STIMULATING HORMONE 2.451 uIU/mL (0.358-3.74)
[2022-10-20 11:37] LABS: ACETAMINOPHEN 0 ug/ml (10-30)
[2022-10-20] MEDS ORDERED: IV NS 0.9% 2,000 ML IV ONE (12:00)
--- NOTE | 2022-10-20 12:07 | NUR ---
URINE COLLECTED AND SENT TO LAB
--- NOTE | 2022-10-20 12:07 | NUR ---
MOVE SHEET SUBMITTED.
[2022-10-20 12:25] LABS: BILIRUBIN,URINE NEGATIVE (NEGATIVE); COLOR,URINE DARK YELLOW (YELLOW); LEUKOCYTE ESTERASE ,URINE NEGATIVE (NEGATIVE); NITRITE, URINE NEGATIVE (NEGATIVE); PROTEIN,URINE TRACE mg/dl (NEGATIVE); UGLUCOSE NEGATIVE (NEGATIVE)
--- NOTE | 2022-10-20 12:31 | NUR ---
COVID SWAB DONE SENT TO LAB
[2022-10-20 12:35] LABS: BACTERIA,URINE Rare /HPF (None Seen); RBC,URINE 0-2 /HPF (0-2); SQUAMOUS EPITHELIAL CELL,UR Many /HPF (None Seen); WBC,URINE 0-2 /HPF (0-3)
--- NOTE | 2022-10-20 13:27 | NUR ---
ivf line removed
[2022-10-20] MEDS ORDERED: MAG HYDROX/AL HYDROX/SIMETH 30 ML UDC PO PRN (13:30)
[2022-10-20] MEDS ORDERED: MAGNESIUM HYDROXIDE 30 ML UDC PO PRN (13:30)
[2022-10-20] MEDS ORDERED: LORAZEPAM INJ 2 MG/ML VIAL IV PRN (13:30)
[2022-10-20] MEDS ORDERED: ACETAMINOPHEN 325 MG TABLET PO PRN (13:30)
[2022-10-20] MEDS ORDERED: Z GUARD REMEDY 4 OZ OINT TP PRN (13:30)
[2022-10-20] MEDS ORDERED: TEMAZEPAM 15 MG CAPSULE PO PRN (13:30)
[2022-10-20] MEDS ORDERED: ONDANSETRON HCL/PF 4 MG/2 ML VIAL IVP PRN (13:30)
--- NOTE | 2022-10-20 13:37 | NUR ---
GOT BED 119-1 ADMITTING INFORMED.
--- NOTE | 2022-10-20 13:46 | NUR ---
ROOM 118-1, NOT 119
--- NOTE | 2022-10-20 14:04 | NUR ---
report given to Tegan MEYER
--- NOTE | 2022-10-20 14:24 | NUR ---
RECEIVED PATIENT FROM ED VIA GURNEY, ALERT AND ORIENTED X4, VERBALLY RESPONSIVE, DENIES ANY PAIN AT THIS MOMENT, NOTED ON ROOM AIR, SATING AT 96%. VS T 98.1 P 63 RR 20 BP 133/83. MED SURG STATUS, NOTED WITH LEFT HAND G#20 PERIPHERAL IV LINE. NOTED PATENT, INTACT AND FLUSHES WELL. SKIN INTACT. PATIENT ABLE TO MOVE UPPER AND LOWER EXTREMITIES. FALL PRECAUTION OBSERVED, BED ALARM. ORIENTED TO THE USE OF CALL LIGHT AND BED REGULATOR. PLACED TABLE CLOSE TO THE PATIENT, WATER PITCHER GIVEN, PLACED TELEPHONE AT THE BEDSIDE PER PATIENT'S REQUEST. PLAN OF CARE CONTINUE.
--- NOTE | 2022-10-20 14:40 | NUR ---
MOVED TO INPATIENT ROOM SAFELY PER ACLS PROTOCOL
[2022-10-20] MEDS: PANTOPRAZOLE 40 MG TABLET.DR PO SCH (15:00)
[2022-10-20] MEDS: THIAMINE HCL 100 MG TABLET PO SCH (15:00)
[2022-10-20] MEDS ORDERED: ATOR10TA PO (15:20)
[2022-10-20] MEDS ORDERED: BUSP10TA35 PO (15:20)
[2022-10-20] MEDS ORDERED: FINA5TAB11 PO (15:20)
[2022-10-20] MEDS ORDERED: SERT100T12 PO (15:20)
[2022-10-20] MEDS ORDERED: DIVA-78 PO (15:20)
[2022-10-20] MEDS ORDERED: KETO15CR2 TD (15:21)
[2022-10-20] MEDS ORDERED: OLAN10TA3 PO (15:21)
[2022-10-20] MEDS ORDERED: ZIPR80CA2 PO (15:21)
[2022-10-20] MEDS: IV NS 0.9% 1,000 ML IV PRN (16:43)
--- NOTE | 2022-10-20 17:00 | NUR ---
STARTED ON NS @100ML/HR MD'S ORDERED.
--- NOTE | 2022-10-20 18:27 | NUR ---
RN CLOSING NOTES PATIENT IS AWAKE WATCHING TV, ALERT AND VERBALLY RESPONSIVE, DENIES ANY PAIN AT THIS MOMENT. ON ROOM AIR, TOLERATING WELL, NO SOB NOTED, RESPIRATION EVEN AND UNLABORED, NOT IN ANY DISTRESS, DENIES ANY PAIN THIS MOMENT, NOTED LEFT HAND PIV NOTED PATENT AND INTACT, WITH NS @100ML/HR RUNNING ORDERED. SAFETY MEASURES IN PLACED. CALL LIGHT WITHIN REACH. WILL ENDORSE TO NIGHT NURSE FOR MARTI.
[2022-10-20] MEDS ORDERED: KETOCONAZOLE 2% CREAM 15 GM TUBE TP SCH (19:00)
[2022-10-20] MEDS: ZIPRASIDONE 20 MG CAPSULE PO SCH (19:19)
--- NOTE | 2022-10-20 19:45 | NUR ---
RN OPENING NOTE RECEIVED PATIENT IN BED; AWAKE, ALERT AND ORIENTED X 4; VERBALLY RESPONSIVE. ON ROOM AIR; TOLERATING WELL. NOT IN ANY FORM OF RESPIRATORY OR CARDIAC DISTRESS. NO C/O ANY PAIN OR DISCOMFORT AT THIS MOMENT. WITH IV ACCESS ON LEFT HAND 20g; PATENT AND INTACT RUNNING WITH NS 1L @ 100 ML/HR; REGULATED ORDERED. ABLE TO MAKE NEEDS KNOWN. SAFETY PRECAUTIONS IMPLEMENTED: CALL LIGHT AND TABLE WITHIN REACH, SIDE RAILS UP x 3, BED IN LOWEST LOCKED POSITION. WILL CONTINUE PLAN OF CARE.
[2022-10-20 20:00] VITALS: BP 94/62
[2022-10-20] MEDS: OLANZAPINE 10 MG TABLET PO SCH (22:55)
[2022-10-21] MEDS: IV NS 0.9% 1,000 ML IV PRN ×2 (02:46→14:36)
--- NOTE | 2022-10-21 05:00 | NUR ---
RN NOTE PATIENT REFUSED VITAL SIGNS TO BE TAKEN.
--- NOTE | 2022-10-21 06:56 | NUR ---
RN CLOSING NOTE PATIENT IN BED; AWAKE, A/O X 4. STABLE ON ROOM AIR. IN NO ACUTE DISTRESS. DENIES ANY PAIN OR DISCOMFORT AT THIS TIME. WITH IV ACCESS ON LEFT HAND 20g; PATENT AND INTACT RUNNING WITH NS 1L @ 100 ML/HR; FLUSHES WELL. ALL DUE MEDS GIVEN. ALL NEEDS ATTENDED TO. SAFETY PRECAUTIONS MAINTAINED: CALL LIGHT AND TABLE WITHIN REACH, SIDE RAILS UP X 3, BED IN LOWEST LOCKED POSITION. ENDORSED TO MORNING SHIFT FOR MARTI.
--- NOTE | 2022-10-21 07:04 | NUR ---
OPENING NOTE RECEIVED PATIENT IN BED AWAKE, ALERT, ORIENTEDX3, NO SIGNS OF IN DISTRESS, SAFETY MEASURES ARE IN PLACE, BED IN LOW POSITION, SIDE RAILS UPX3, CALL LIGHT WITHIN REACH.
[2022-10-21 07:10] LABS: BASOPHILS # (AUTO) 0.1 K/uL (0.0-0.2); BASOPHILS % (AUTO) 1.3 % (0.0-2.0); EOSINOPHILS % (AUTO) 1.9 % (0.0-6.0); HEMATOCRIT 41 % (39-51); HEMOGLOBIN 13.1 g/dL (13.5-17.5); LYMPHOCYTES # (AUTO) 1.7 K/uL (0.8-4.8); LYMPHOCYTES % (AUTO) 35.7 % (20.0-44.0); MEAN CORPUSCULAR HGB CONC 32 g/dl (31.0-36.0); MEAN CORPUSCULAR VOLUME 96 fL (80-96); MONOCYTES # (AUTO) 0.4 K/uL (0.1-1.30); MONOCYTES % (AUTO) 8.7 % (2.0-12.0); NEUTROPHILS # (AUTO) 2.4 K/uL (1.8-8.9); NEUTROPHILS % (AUTO) 52.4 % (43.0-81.0); PLATELET COUNT (AUTO) 137 K/uL (150-450); RED BLOOD CELL COUNT(AUTO) 4.21 MIL/uL (4.5-6.0); WHITE BLOOD COUNT (AUTO) 4.7 K/uL (4.3-11.0)
[2022-10-21] MEDS: PANTOPRAZOLE 40 MG TABLET.DR PO SCH (07:15)
[2022-10-21 07:38] LABS: CALCIUM, SERUM 8.3 mg/dL (8.5-10.1); CREATININE 0.8 mg/dL (0.6-1.3)
[2022-10-21 07:41] LABS: MAGNESIUM 1.5 mg/dL (1.8-2.4); PHOSPHORUS 3.7 mg/dL (2.5-4.9)
[2022-10-21 08:00] VITALS: BP 147/99
[2022-10-21] MEDS: THIAMINE HCL 100 MG TABLET PO SCH (08:03)
[2022-10-21] MEDS: SERTRALINE HCL 50 MG TABLET PO SCH (08:05)
[2022-10-21] MEDS: Magnesium 1GM/D5W 100ML PREMIX 100 ML IV SCH ×2 (09:11→10:21)
--- NOTE | 2022-10-21 14:55 | NUR ---
I INFORMED DR SCHAEFFER REGARDING PATIENTS C/O PAIN ON LEFT FOOT 03/11. PATIENT ASKED PAIN MEDICATION STRONGER THAN TYLENOL.
[2022-10-21 16:00] VITALS: BP 139/90
[2022-10-21] MEDS: FINASTERIDE (5 MG) 5 MG TABLET PO SCH (17:05)
[2022-10-21] MEDS: DIVALPROEX SODIUM 500 MG TABLET.DR PO SCH (17:05)
[2022-10-21] MEDS: HYDROCODONE/APAP 5/325MG TABLET PO PRN ×2 (17:06→21:30)
[2022-10-21] MEDS: ATORVASTATIN 10 MG TABLET PO SCH (17:07)
[2022-10-21] MEDS: busPIRone 5 MG TABLET PO SCH (17:07)
[2022-10-21] MEDS: ZIPRASIDONE 20 MG CAPSULE PO SCH (17:08)
[2022-10-21] MEDS ORDERED: busPIRone HCL 10 MG TABLET PO SCH (18:00)
--- NOTE | 2022-10-21 18:19 | NUR ---
CLOSING NOTE PATIENT IN BED; AWAKE, A/O X 4. STABLE ON ROOM AIR. IN NO ACUTE DISTRESS. DENIES ANY PAIN OR DISCOMFORT AT THIS TIME. WITH IV ACCESS ON LEFT HAND 20g; PATENT AND INTACT RUNNING WITH NS 1L @ 100 ML/HR; FLUSHES WELL. ALL DUE MEDS GIVEN. ALL NEEDS ATTENDED TO. SAFETY PRECAUTIONS MAINTAINED: CALL LIGHT AND TABLE WITHIN REACH, SIDE RAILS UP X 3, BED IN LOWEST LOCKED POSITION.
[2022-10-21 20:00] VITALS: BP 119/76
[2022-10-21] MEDS: OLANZAPINE 10 MG TABLET PO SCH (21:30)
[2022-10-21] MEDS: clonazePAM 1 MG TABLET PO SCH (22:10)
[2022-10-22] MEDS: IV NS 0.9% 1,000 ML IV PRN ×3 (00:46→23:24)
[2022-10-22] MEDS: HYDROCODONE/APAP 5/325MG TABLET PO PRN ×5 (03:26→21:06)
[2022-10-22 04:00] VITALS: BP 106/73
--- NOTE | 2022-10-22 04:53 | NUR ---
PATIENT C/O LEFT FOOT/TOES PAIN 8-05/11. PAIN MANAGEMENT ORDERED. PRN NORCO [phone] ADMINISTERED AT 2130 AND 0326.
[2022-10-22 06:18] LABS: CALCIUM, SERUM 7.9 mg/dL (8.5-10.1); CREATININE 0.7 mg/dL (0.6-1.3); POTASSIUM 3.9 mmol/L (3.5-5.1)
--- NOTE | 2022-10-22 07:00 | NUR ---
MS RN CLOSING NOTES - PATIENT RESTING IN BED, ABLE TO VERBALIZE NEEDS. NO ACUTE DISTRESS THROUGHOUT THE NIGHT. NO SOB OR NOTED, TOLERATING ROOM AIR WELL. AFEBRILE. LEFT HAND IV ACCESS INTACT, PATENT AND FLUSHING. ALL DUE MEDS GIVEN AND NEEDS ATTENDED. PAIN CONTROL ORDERED. SAFETY MEASURES MAINTAINED. WILL ENDORSE TO NEXT SHIFT FOR MARTI.
--- NOTE | 2022-10-22 07:10 | NUR ---
RN OPEN NOTE MS RN OPENING NOTES - RECEIVED PATIENT AWAKE, FEMALE VISITOR ON BEDSIDE. A/O X4. BREATHING EVEN AND NON-LABORED ON ROOM AIR. NOT IN APPARENT DISTRESS. NO C/O PAIN AT THIS TIME. HAS LEFT HAND IV ACCESS #20G WITH NS RUNNING AT 100 ML/HR. NO S/S OF INFILTRATION NOTED. SAFETY MEASURES IN PLACE: BED LOCKED AND IN LOW POSITION, SIDE RAILS UP X2, CALL LIGHT WITHIN REACH. WILL CONTINUE PLAN OF CARE.
[2022-10-22] MEDS: PANTOPRAZOLE 40 MG TABLET.DR PO SCH (07:50)
[2022-10-22] MEDS: SERTRALINE HCL 50 MG TABLET PO SCH (08:33)
[2022-10-22] MEDS: THIAMINE HCL 100 MG TABLET PO SCH (08:33)
[2022-10-22 16:00] VITALS: BP 116/73
[2022-10-22] MEDS: DIVALPROEX SODIUM 500 MG TABLET.DR PO SCH (17:20)
[2022-10-22] MEDS: FINASTERIDE (5 MG) 5 MG TABLET PO SCH (17:20)
[2022-10-22] MEDS: busPIRone 5 MG TABLET PO SCH (17:21)
[2022-10-22] MEDS: ATORVASTATIN 10 MG TABLET PO SCH (17:44)
[2022-10-22] MEDS: ZIPRASIDONE 20 MG CAPSULE PO SCH (18:32)
--- NOTE | 2022-10-22 18:48 | NUR ---
MS RN CLOSING NOTES PATIENT RESTING IN BED, ABLE TO VERBALIZE NEEDS. NO ACUTE DISTRESS THROUGHOUT THE NIGHT. NO SOB OR NOTED, TOLERATING ROOM AIR WELL. AFEBRILE. LEFT HAND IV ACCESS INTACT, PATENT AND FLUSHING. ALL DUE MEDS GIVEN AND NEEDS ATTENDED. PAIN CONTROL ORDERED. SAFETY MEASURES MAINTAINED. WILL ENDORSE TO NEXT SHIFT FOR MARTI.
--- NOTE | 2022-10-22 19:30 | NUR ---
MS RN OPENING NOTES RECEIVED PT AWAKE IN BED, GIRLFRIEND AT BEDSIDE. A/O X4, ABLE TO MAKE NEEDS KNOWN. ON RA WITH NO S/S OF SOB OR DISTRESS. C/O PAIN AND REQUESTING MEDS. EXPLAINED TO PT THAT PAIN MEDS ARE NOT DUE YET, VERBALIZED UNDERSTANDING. L HAND #20G, INTACT, PATENT, FLUSHING WELL, RUNNING NS @ 100 ML/HR. SAFETY MEASURES IN PLACE: BED LOCKED AND IN LOW POSITION, SIDE RAILS UP X2, BED ALARM ON, CALL LIGHT AND TRAY TABLE WITHIN REACH. WILL CONTINUE TO MONITOR AND ASSIST.
[2022-10-22 20:00] VITALS: BP 119/86
--- NOTE | 2022-10-22 21:15 | NUR ---
RN NOTE PT REQUESTED NORCO FOR PAIN AND ADMINISTERED PRESCRIBED. SCHEDULED KLONOPIN @ 2200 ALSO REMOVED FROM [facility] AT THE SAME TIME BUT RETURNED BACK TO [facility] TO REDUCE RISK OF RESPIRATORY DEPRESSION DUE TO RECENT ADMIN OF NORCO. WITNESSED BY KOKI MEYER. PT ALSO REFUSED ZYPREXA SAYING IT MAKES HIM EAT MORE. EXPLAINED RISK/BENEFITS TO PT, VERBALIZED UNDERSTANDING.
[2022-10-22] MEDS: OLANZAPINE 10 MG TABLET PO SCH (22:00)
[2022-10-22] MEDS: clonazePAM 1 MG TABLET PO SCH (22:03)
--- NOTE | 2022-10-22 22:15 | NUR ---
RN NOTE ADMINISTERED KLONOPIN PLANNED/PRESCRIBED.
[2022-10-23] MEDS: HYDROCODONE/APAP 5/325MG TABLET PO PRN ×3 (02:23→09:21)
[2022-10-23 04:00] VITALS: BP 126/88
[2022-10-23 07:14] LABS: CALCIUM, SERUM 8.5 mg/dL (8.5-10.1); CREATININE 0.8 mg/dL (0.6-1.3); POTASSIUM 3.7 mmol/L (3.5-5.1)
[2022-10-23] MEDS: PANTOPRAZOLE 40 MG TABLET.DR PO SCH (07:32)
--- NOTE | 2022-10-23 07:42 | NUR ---
MS RN CLOSING NOTES PT AWAKE IN BED. A/O X4, ABLE TO MAKE NEEDS KNOWN. STABLE ON RA WITH NO S/S OF SOB OR DISTRESS. DENIES PAIN AT THIS TIME. L HAND #20G, INTACT, PATENT, FLUSHING WELL, RUNNING NS @ 100 ML/HR. ALL CARE PROVIDED AND MEDS TOLERATED WELL. SAFETY MEASURES MAINTAINED: BED LOCKED AND IN LOW POSITION, SIDE RAILS UP X2, BED ALARM ON, CALL LIGHT AND TRAY TABLE WITHIN REACH. WILL ENDORSE MARTI TO DAY SHIFT NURSE.
[2022-10-23] MEDS: SERTRALINE HCL 50 MG TABLET PO SCH (08:40)
[2022-10-23] MEDS: THIAMINE HCL 100 MG TABLET PO SCH (08:40)
[2022-10-23] MEDS: IV NS 0.9% 1,000 ML IV PRN (09:28)
== END 2022-10-23 13:26 | disposition home or self-care (01) | DRG 351 ==
LOC: ER 09:52 → MEDSG1 13:42
PROVIDERS: ADMIT Nurse Practitioner Acute Care; ATTEND Nurse Practitioner Acute Care
DX: M62.82 Rhabdomyolysis (principal); S09.90XA Unspecified injury of head, initial encounter; M84.475A Pathological fracture, left foot, initial encounter for fracture; F12.90 Cannabis use, unspecified, uncomplicated; Z20.822 Contact with and (suspected) exposure to COVID-19; W01.0XXA Fall on same level from slipping, tripping and stumbling without subsequent striking against object, initial encounter; Y92.9 Unspecified place or not applicable; G40.909 Epilepsy, unspecified, not intractable, without status epilepticus; Z79.899 Other long term (current) drug therapy; E78.5 Hyperlipidemia, unspecified; E83.42 Hypomagnesemia; F32.A Depression, unspecified; Z91.81 History of falling; R29.6 Repeated falls; M21.40 Flat foot [pes planus] (acquired), unspecified foot; Z90.49 Acquired absence of other specified parts of digestive tract; F10.10 Alcohol abuse, uncomplicated; Y90.0 Blood alcohol level of less than 20 mg/100 ml; R74.01 Elevation of levels of liver transaminase levels
CPT/HCPCS: 36415; 70450-TC; 71045-TC; 72125-TC; 73630-TC; 80048-TC; 80076-TC; 81001; 82550-TC; 82553; 82962-TC; 83735-TC; 84100-TC; 84443-TC; 85025-TC; 87081-TC; 97112-TC; 97116-TC; 97530-TC; A4223; C9803; G0378; G0480; J2060; J3475; J7030; J7050

== ENCOUNTER 2022-11-15 13:05 | Inpatient (IN) | payer OTHER ==
[~2022-11-15] VITALS: Ht 175.3 cm; Wt 82.6 kg
[~2022-11-15 13:05] MED LIST changes: -AMOX-427 PO; +BUSP10TA35 PO; -BUSP5TAB3 PO; -CLON1TAB12 PO; +DIVA-78 PO; -DIVA500T2 PO; -DOXE10CA PO; +FINA5TAB11 PO; -FINA5TAB3 PO; -Folic Acid PO; +KETO15CR2 TD; -LORA10TA7 PO; +OLAN10TA3 PO; -Olanzapine PO; -Quetiapine Fumarate PO; +SERT100T12 PO; -SERT50TA PO; -ZIPR20CA2 PO; +ZIPR80CA2 PO
--- NOTE | 2022-11-15 14:30 | NUR ---
[id number] FROM [facility] C/O BLE PAIN AND WEAKNESS, UNABLE TO WALK. FOR COUPLE DAYS
[2022-11-15 16:30] LABS: ALANINE AMINOTRANSFERASE 194 U/L (12-78); ALBUMIN 3.5 g/dL (3.4-5.0); ALKALINE PHOSPHATASE 67 U/L (46-116); ASPARTATE AMINOTRANSFERASE 516 U/L (15-37); BILIRUBIN,DIRECT 0.1 mg/dL (0.0-0.2); BILIRUBIN,TOTAL 0.4 mg/dL (0.2-1.0); CALCIUM, SERUM 8.9 mg/dL (8.5-10.1); CARBON DIOXIDE 24 mmol/L (21-32); CHLORIDE 104 mmol/L (98-107); GLUCOSE 87 mg/dL (74-106); POTASSIUM 4.2 mmol/L (3.5-5.1); SODIUM SERUM 139 mmol/L (136-145); TOTAL PROTEIN, SERUM 6.7 g/dL (6.4-8.2); UREA NITROGEN, BLOOD 20 mg/dL (7-18)
[2022-11-15 16:44] LABS: MAGNESIUM 1.8 mg/dL (1.8-2.4)
[2022-11-15 16:46] LABS: BASOPHILS # (AUTO) 0.1 K/uL (0.0-0.2); EOSINOPHILS % (AUTO) 0.8 % (0.0-6.0); HEMATOCRIT 41 % (39-51); HEMOGLOBIN 13.2 g/dL (13.5-17.5); LYMPHOCYTES # (AUTO) 1.8 K/uL (0.8-4.8); LYMPHOCYTES % (AUTO) 35.8 % (20.0-44.0); MEAN CORPUSCULAR HGB CONC 32 g/dl (31.0-36.0); MEAN CORPUSCULAR VOLUME 95 fL (80-96); MONOCYTES # (AUTO) 0.5 K/uL (0.1-1.30); MONOCYTES % (AUTO) 9.9 % (2.0-12.0); NEUTROPHILS # (AUTO) 2.5 K/uL (1.8-8.9); NEUTROPHILS % (AUTO) 51.5 % (43.0-81.0); PLATELET COUNT (AUTO) 168 K/uL (150-450); RED BLOOD CELL COUNT(AUTO) 4.36 MIL/uL (4.5-6.0); WHITE BLOOD COUNT (AUTO) 4.9 K/uL (4.3-11.0)
[2022-11-15] MEDS ORDERED: Magnesium 1 GM/2 ML VIAL IV ONE (17:00)
[2022-11-15] MEDS ORDERED: THIAMINE HCL 100 MG TABLET PO ONE (17:00)
[2022-11-15] MEDS ORDERED: FOLIC ACID 1 MG TABLET PO ONE (17:00)
--- NOTE | 2022-11-15 17:00 | NUR ---
MOVE SHEET SUBMITTED.
[2022-11-15] MEDS ORDERED: Magnesium 1GM/D5W 100ML PREMIX 100 ML IV ONE (17:03)
[2022-11-15] MEDS ORDERED: THIAMINE HCL 100 MG TABLET ONE (17:04)
[2022-11-15] MEDS ORDERED: FOLIC ACID 1 MG TABLET ONE (17:04)
--- NOTE | 2022-11-15 17:06 | NUR ---
PT SWABBED FOR COVID. LAB CALLED FOR TOOL/DIE MAKER
[2022-11-15] MEDS ORDERED: FOLI0.4T6 PO (17:15)
[2022-11-15] MEDS ORDERED: FLUT50DI INH (17:15)
[2022-11-15] MEDS ORDERED: CLON2TAB11 PO (17:15)
[2022-11-15] MEDS ORDERED: THIA100T74 PO (17:34)
[2022-11-15] MEDS ORDERED: OMEP20CA15 PO (17:34)
--- NOTE | 2022-11-15 19:00 | NUR ---
FISCAL SERVICES MANAGER NOTE RECEIVED PT FROM [employer] AND ACQUISITIONS BANKER @ 2020. PT ARRIVED IN A GURNEY. A/O X 4, ABLE TO MAKE NEEDS KNOWN. ORIENTED TO STAFF AND UNIT. PT IS IN RA TOLERATING WELL, BREATHING EVEN AND UNLABORED AT THIS TIME. PT IV PRESENT ON LEFT HAND #20g SALINE LOCK, PATENT, INTACT AND FLUSHES WELL W/ NO S&SX OF INFILTRATION @ SITE NOTED. PT SKIN IS WARM, DRY AND INTACT. PT BELONGINGS ARE ALL ACCOUNTED FOR AND FILED IN THE CHART. ALL NEEDS ATTENDED. SAFETY MEASURES INITIATED. BED IN LOWEST AND LOCKED POSITION. SIDE RAILS X 2. BEDSIDE TABLE AND CALL LIGHT IS EASY REACH. WILL CONTINUE TO MONITOR PT ACCORDINGLY. Addendum: 11/16/22 at 0156 by EVA MOTA RN ADMISSION NOTE @ 2020.
--- NOTE | 2022-11-15 20:12 | NUR ---
REPORT GIVEN TO EVA King RN FOR MARTI
--- NOTE | 2022-11-15 20:21 | NUR ---
PT TRANSFERRING TO 311-2 VIA ACLS PROTOCOL. VSS. ALL BELONGINGS WITH PT.
[2022-11-15] MEDS ORDERED: ONDANSETRON HCL/PF 4 MG/2 ML VIAL IVP PRN (21:30)
[2022-11-15] MEDS: ENOXAPARIN SODIUM 40 MG/0.4 ML DISP.SYRIN SQ SCH (22:19)
[2022-11-15] MEDS: IV NS 0.9% 1,000 ML IV PRN (22:43)
[2022-11-15] MEDS: HYDROCODONE/APAP 5/325MG TABLET PO PRN (23:06)
[2022-11-15 23:49] VITALS: BP 117/81
[2022-11-16] MEDS: HYDROCODONE/APAP 5/325MG TABLET PO PRN ×2 (05:08→12:36)
[2022-11-16 06:33] LABS: BASOPHILS # (AUTO) 0.1 K/uL (0.0-0.2); EOSINOPHILS % (AUTO) 2.6 % (0.0-6.0); HEMATOCRIT 39 % (39-51); HEMOGLOBIN 12.9 g/dL (13.5-17.5); LYMPHOCYTES # (AUTO) 1.7 K/uL (0.8-4.8); LYMPHOCYTES % (AUTO) 42.5 % (20.0-44.0); MEAN CORPUSCULAR HGB CONC 33 g/dl (31.0-36.0); MEAN CORPUSCULAR VOLUME 95 fL (80-96); MONOCYTES # (AUTO) 0.4 K/uL (0.1-1.30); MONOCYTES % (AUTO) 10.3 % (2.0-12.0); NEUTROPHILS # (AUTO) 1.7 K/uL (1.8-8.9); NEUTROPHILS % (AUTO) 42.6 % (43.0-81.0); PLATELET COUNT (AUTO) 147 K/uL (150-450); RED BLOOD CELL COUNT(AUTO) 4.11 MIL/uL (4.5-6.0)
--- NOTE | 2022-11-16 06:45 | NUR ---
RN CLOSING NOTE PT IS ASLEEP AND RESTING COMFORTABLY IN BED. A/O X 4, RESPONSIVE AND FOLLOWS VERBAL COMMAND. PT IS IN RA TOLERATING WELL, BREATHING EVEN AND UNLABORED AT THIS TIME. PT IV PRESENT ON LEFT HAND #20G RUNNING NS @ 125 MLS/HR, PATENT, INTACT AND FLUSHES WELL W/ NO S&SX OF INFILTRATION @ SITE NOTED. PT IS KEPT CLEAN, DRY AND COMFORTABLE. ADMINISTERED MEDICATIONS ACCORDINGLY PER MD'S ORDER. SAFETY MEASURES IN PLACE. BED IN LOWEST AND LOCKED POSITION. SIDE RAILS X 2. BEDSIDE TABLE AND CALL LIGHT IS EASY REACH. WILL ENDORSE TO THE NEXT SHIFT FOR MARTI.
[2022-11-16 07:04] LABS: CALCIUM, SERUM 8.4 mg/dL (8.5-10.1); CREATININE 0.7 mg/dL (0.6-1.3); PHOSPHORUS 3.5 mg/dL (2.5-4.9)
[2022-11-16 07:10] LABS: POTASSIUM 3.8 mmol/L (3.5-5.1)
--- NOTE | 2022-11-16 07:20 | NUR ---
AUTOMOTIVE SERVICE DIRECTOR OPENING NOTE PATIENT IS ASLEEP, WITH VISIBLE CHEST EXTENSION. A/Ox4, ON ROOM AIR, BREATHING EVEN AND UNLABORED. NO S/S OF SOB. NO S/S OF PAIN OR DISCOMFORT. IV ACCESS L HAND G#20 RUNNING NS 125ML/HR. PATENT AND INTACT. FALL AND SAFETY PRECAUTION ARE IN PLACE: BED ALARM IS ON, LOCKED AND IN THE LOWEST POSITION, SRx2 , CALL LIGHT WITHIN REACH.
[2022-11-16 08:00] VITALS: BP 123/81
[2022-11-16] MEDS: THIAMINE HCL 100 MG TABLET PO SCH (09:17)
[2022-11-16] MEDS: FOLIC ACID 1 MG TABLET PO SCH (09:17)
--- NOTE | 2022-11-16 12:40 | NUR ---
OIL WINTERIZER NOTE PRN MEDICATION PATIENT COMPLAINING OF PAIN OF BLE. PATIENT STATED FROM 1-10, PAIN LEVEL "7". ADMINISTERED Dr [employer] @6539.
[2022-11-16] MEDS: busPIRone 5 MG TABLET PO SCH ×2 (13:39→17:20)
[2022-11-16] MEDS: ZIPRASIDONE 20 MG CAPSULE PO SCH ×2 (13:40→17:24)
[2022-11-16] MEDS: CHLORDIAZEPOXIDE HCL 25 MG CAPSULE PO SCH ×2 (13:40→21:41)
[2022-11-16] MEDS: IV NS 0.9% 1,000 ML IV PRN ×2 (13:43→22:50)
[2022-11-16 16:00] VITALS: BP 122/84
[2022-11-16] MEDS: FINASTERIDE (5 MG) 5 MG TABLET PO SCH (17:20)
[2022-11-16] MEDS: DIVALPROEX SODIUM 500 MG TABLET.DR PO SCH (17:21)
[2022-11-16] MEDS: ATORVASTATIN 10 MG TABLET PO SCH (17:21)
[2022-11-16] MEDS: ACETAMINOPHEN 325 MG TABLET PO PRN (17:46)
--- NOTE | 2022-11-16 17:46 | NUR ---
LONG LINE TEAMSTER NOTE PRN MEDICATION PATIENT COMPLAINING OF PAIN OF BLE. PATIENT STATED FROM 1-10, PAIN LEVEL "7". NO S/S OF DISTRESS OR DISCOMFORT. ADMINISTERED TYLENOL @5306.
--- NOTE | 2022-11-16 18:40 | NUR ---
HOME HEALTH SCHEDULER CLOSING NOTE PATIENT IS AWAKE IN BED RESTING, A/Ox4, STABLE ON ROOM AIR, BREATHING EVEN AND UNLABORED. NO S/S OF SOB. IV ACCESS L HAND G#20 RUNNING NS 125ML/HR. PATENT AND INTACT. MEDICATION ADMINISTERED SCHEDULED. FALL AND SAFETY PRECAUTION ARE IN PLACE: BED ALARM IS ON, LOCKED AND IN THE LOWEST POSITION, SRx2 , CALL LIGHT WITHIN REACH. ENDORSED TO DEPARTMENT TRAFFIC FREIGHT ROUTER NURSE.
--- NOTE | 2022-11-16 19:50 | NUR ---
MSRN FULLY AWAKE, BEHAVIOR CALM, NO TREMORS. V/S STABLE. CONTINENT, GOOD OUTPUT. ALL NEEDS ATTENDED. DISCUSSED WITH PATIENT PLAN OF CARE AND MEDICATION REGIMEN, APPEARS TO UNDERSTAND. STABLE FOR NOW. SAFETY PRECAUTIONS EMPHASIZED. CALL LIGHT USE REVIEWED WITH PATIENT, TO CALL STAFF FOR ANY FURTHER DISCOMFORTS OR ASSISTANCE. CLOSELY WATCHED.
[2022-11-16 20:00] VITALS: BP 126/87
[2022-11-16] MEDS ORDERED: clonazePAM 2 MG TABLET PO SCH (21:00)
[2022-11-16] MEDS ORDERED: clonazePAM 1 MG TABLET ONE (21:15)
[2022-11-16] MEDS: ENOXAPARIN SODIUM 40 MG/0.4 ML DISP.SYRIN SQ SCH (21:42)
[2022-11-16 22:00] VITALS: BP 126/87
[2022-11-16] MEDS: clonazePAM 1 MG TABLET PO SCH (22:07)
[2022-11-16] MEDS: OLANZAPINE 10 MG TABLET PO SCH (22:20)
[2022-11-16] MEDS: SERTRALINE HCL 50 MG TABLET PO SCH (22:20)
--- NOTE | 2022-11-16 22:30 | NUR ---
MSRN DUE MEDS ADMINISTERED. NO OTHER NEEDS MADE.
[2022-11-16] MEDS ORDERED: MAG HYDROX/AL HYDROX/SIMETH 30 ML UDC PO PRN (23:30)
--- NOTE | 2022-11-17 01:07 | NUR ---
CELINE ASLEEP , PROVIDED QUIET ENVI. CLOSELY WATCHED.
[2022-11-17 06:20] LABS: BASOPHILS # (AUTO) 0.1 K/uL (0.0-0.2); BASOPHILS % (AUTO) 2.3 % (0.0-2.0); EOSINOPHILS % (AUTO) 2.7 % (0.0-6.0); HEMATOCRIT 40 % (39-51); HEMOGLOBIN 12.9 g/dL (13.5-17.5); LYMPHOCYTES # (AUTO) 1.5 K/uL (0.8-4.8); LYMPHOCYTES % (AUTO) 42.4 % (20.0-44.0); MEAN CORPUSCULAR HGB CONC 32 g/dl (31.0-36.0); MEAN CORPUSCULAR VOLUME 95 fL (80-96); MONOCYTES # (AUTO) 0.4 K/uL (0.1-1.30); MONOCYTES % (AUTO) 10.6 % (2.0-12.0); NEUTROPHILS # (AUTO) 1.4 K/uL (1.8-8.9); PLATELET COUNT (AUTO) 163 K/uL (150-450); WHITE BLOOD COUNT (AUTO) 3.4 K/uL (4.3-11.0)
[2022-11-17] MEDS: CHLORDIAZEPOXIDE HCL 25 MG CAPSULE PO SCH ×3 (06:26→21:21)
[2022-11-17] MEDS: IV NS 0.9% 1,000 ML IV PRN ×3 (06:37→23:27)
[2022-11-17 06:40] LABS: CALCIUM, SERUM 8.3 mg/dL (8.5-10.1); CREATININE 0.6 mg/dL (0.6-1.3); MAGNESIUM 1.8 mg/dL (1.8-2.4); PHOSPHORUS 3.8 mg/dL (2.5-4.9); POTASSIUM 3.7 mmol/L (3.5-5.1)
--- NOTE | 2022-11-17 06:49 | NUR ---
CELINE TOOK HIS LIBRIUM LATE. PRESENT IVF INFUSING WELL. ALL NEEDS ATTENDED.
[2022-11-17 07:37] LABS: BILIRUBIN,URINE NEGATIVE (NEGATIVE); COLOR,URINE YELLOW (YELLOW); LEUKOCYTE ESTERASE ,URINE NEGATIVE (NEGATIVE); NITRITE, URINE NEGATIVE (NEGATIVE); PROTEIN,URINE NEGATIVE (NEGATIVE); UGLUCOSE NEGATIVE (NEGATIVE); UROBILINOGEN,URINE 0.2 EU/dL (0.2)
[2022-11-17 08:00] VITALS: BP 109/73
[2022-11-17] MEDS: THIAMINE HCL 100 MG TABLET PO SCH (08:02)
[2022-11-17] MEDS: busPIRone 5 MG TABLET PO SCH ×3 (08:02→16:36)
[2022-11-17] MEDS: PANTOPRAZOLE 40 MG TABLET.DR PO SCH (08:02)
[2022-11-17] MEDS: FOLIC ACID 1 MG TABLET PO SCH (08:02)
[2022-11-17] MEDS: clonazePAM 1 MG TABLET PO SCH ×2 (08:04→16:36)
[2022-11-17] MEDS: ZIPRASIDONE 20 MG CAPSULE PO SCH ×2 (08:04→16:36)
[2022-11-17] MEDS: HYDROCODONE/APAP 5/325MG TABLET PO PRN ×2 (14:01→18:19)
[2022-11-17 16:00] VITALS: BP 125/70
[2022-11-17] MEDS: ATORVASTATIN 10 MG TABLET PO SCH (17:09)
[2022-11-17] MEDS: DIVALPROEX SODIUM 500 MG TABLET.DR PO SCH (17:09)
[2022-11-17] MEDS: FINASTERIDE (5 MG) 5 MG TABLET PO SCH (17:09)
--- NOTE | 2022-11-17 18:29 | NUR ---
END OF SHIFT SUMMARY PATIENT IS A/O X3. SATURATING WELL ON RA. INDEPENDENT WITH REPOSITIONING. CONTINENT, USES URINAL. L HAND #20 G, NS RUNNING AT 125 ML/HR. PAIN MANAGED WITH NORCO. SAFETY MEASURES MAINTAINED. BED IN LOWEST POSITION, BRAKES LOCKED. SIDE RAILS UP X2. CALL LIGHT WITHIN REACH. WILL ENDORSE CONTINUITY OF CARE TO ONCOMING SHIFT.
[2022-11-17 20:00] VITALS: BP 118/78
[2022-11-17] MEDS: SERTRALINE HCL 50 MG TABLET PO SCH (21:21)
[2022-11-17] MEDS: OLANZAPINE 10 MG TABLET PO SCH (21:21)
[2022-11-17] MEDS: ENOXAPARIN SODIUM 40 MG/0.4 ML DISP.SYRIN SQ SCH (21:22)
--- NOTE | 2022-11-17 21:29 | NUR ---
ANTICOAGULANT H/H 12.9 PLT 163 No s/s of bleeding. Lovenox injection given, co-signed by BETSY KEY.
[2022-11-18] MEDS: HYDROCODONE/APAP 5/325MG TABLET PO PRN ×3 (00:01→09:22)
--- NOTE | 2022-11-18 06:09 | NUR ---
END OF SHIFT REPORT Patient in bed, Alert Oriented x4. Oxygen sat high 90's in RA. LFA IV peripheral line intact, IVF continuous. Patient with good appetite, repeated request for apple juice and teressa crackers while awake. Up to chair, generalized weakness still present. Patient focused to get Pemberton medication. Education given on Pemberton indication and possible side effect, patient verbalized understanding. Denies chest pain, no tremors. Given Pemberton for rose leg pain with relief. Plan for continue IVF, monitor for s/s of alcohol withdrawal. Total CK slowly trending down. 11/15/22 CK elevated, result pending from 11/17/2022. Fall precaution maintained.
[2022-11-18] MEDS: CHLORDIAZEPOXIDE HCL 25 MG CAPSULE PO SCH ×2 (06:27→12:48)
--- NOTE | 2022-11-18 07:30 | NUR ---
RN OPENING NOTE Patient is in bed, A/Ox4 ON RA, NO RESPIRATORY DISTRESS. LFA g 22 IV peripheral line intact, generalized weakness present. PT STATES PAIN 7 OUT OF 10 IN HIS LEGS. Denies chest pain, no tremors. PT IS ASKING FOR NORCO FOR rose leg pain. monitor for s/s of alcohol withdrawal. Total CK slowly trending down. Fall precaution maintained. BED LOCKED AND IN LOWEST POSITION, SIDE RAILS UP X 3. TABLE AND CALL LIGHT AT REACH. WILL PROVIDE CARE AND ADMINISTER MEDS AND DO PAIN CONTROL.
[2022-11-18] MEDS: PANTOPRAZOLE 40 MG TABLET.DR PO SCH (07:45)
[2022-11-18] MEDS: ACETAMINOPHEN 325 MG TABLET PO PRN (07:49)
[2022-11-18 08:00] VITALS: BP 108/77
[2022-11-18] MEDS: THIAMINE HCL 100 MG TABLET PO SCH (09:13)
[2022-11-18] MEDS: FOLIC ACID 1 MG TABLET PO SCH (09:13)
[2022-11-18] MEDS: clonazePAM 1 MG TABLET PO SCH (09:13)
[2022-11-18] MEDS: busPIRone 5 MG TABLET PO SCH ×2 (09:14→12:49)
[2022-11-18] MEDS: ZIPRASIDONE 20 MG CAPSULE PO SCH (09:14)
--- NOTE | 2022-11-18 13:30 | NUR ---
RN NOTE- PT DISCHARGED AT THIS TIME TO UBER AND HOME W GIRLFRIEND. DC INSTRUCTIONS REVIEWED AND UNDERSTOOD. IV REMOVED. ID WRISTBAND REMOVED. BELONGINGS W PT. ESCORTED TO [facility] AND [facility].
== END 2022-11-18 13:35 | disposition home or self-care (01) | DRG 351 ==
LOC: ER 13:09 → TELE 20:08 → MED 21:58
PROVIDERS: ADMIT Nurse Practitioner Acute Care
DX: M62.82 Rhabdomyolysis (principal); D63.8 Anemia in other chronic diseases classified elsewhere; E51.2 Wernicke's encephalopathy; E87.1 Hypo-osmolality and hyponatremia; E86.0 Dehydration; E78.5 Hyperlipidemia, unspecified; G40.909 Epilepsy, unspecified, not intractable, without status epilepticus; F31.9 Bipolar disorder, unspecified; Z79.899 Other long term (current) drug therapy; Z90.49 Acquired absence of other specified parts of digestive tract; Z91.81 History of falling; R29.6 Repeated falls; F10.10 Alcohol abuse, uncomplicated; M21.42 Flat foot [pes planus] (acquired), left foot; M21.41 Flat foot [pes planus] (acquired), right foot; Z20.822 Contact with and (suspected) exposure to COVID-19
CPT/HCPCS: 36415; 70450-TC; 80048-TC; 80061-TC; 80076-TC; 82550-TC; 82553; 82962-TC; 83605-TC; 83735-TC; 83880; 84100-TC; 84484-TC; 85025-TC; 87081-TC; 97112-TC; 97116-TC; 97530-TC; A4223; C9803; G0378; J1650; J3475; J7030

== ENCOUNTER 2023-01-06 14:50 | Emergency (ER) | payer OTHER ==
[~2023-01-06] VITALS: Ht 175.3 cm; Wt 70.3 kg
[~2023-01-06 14:50] MED LIST changes: +CLON2TAB11 PO; -KETO15CR2 TD; +OMEP20CA15 PO; +THIA100T74 PO
[2023-01-06] MEDS ORDERED: HYDROCODONE/APAP 10/325MG TABLET PO ONE (15:30)
[2023-01-06] MEDS ORDERED: HYDROCODONE/APAP 10/325MG TABLET ONE (15:37)
[2023-01-06] MEDS ORDERED: TDAP [DIPH/PERTUSSIS/TET] 0.5 ML VIAL IM ONE ×2 (16:00)
[2023-01-06] MEDS ORDERED: CYCLOBENZAPRINE 10 MG TABLET ONE (17:29)
[2023-01-06] MEDS ORDERED: CYCLOBENZAPRINE 10 MG TABLET PO ONE (17:30)
[2023-01-06] MEDS ORDERED: LIDOCAINE 1%-EPI 1:100,000 20 ML VIAL TP ONE (18:00)
[2023-01-06] MEDS ORDERED: LIDOCAINE 2% 20 ML MDV ONE (18:01)
[2023-01-06] MEDS ORDERED: CYCL10TA9 PO (18:42)
[2023-01-06 18:50] VITALS: BP 108/80
== END 2023-01-06 18:51 | disposition home or self-care (01) ==
LOC: ER 14:51
DX: S01.01XA Laceration without foreign body of scalp, initial encounter (principal); M54.2 Cervicalgia; F03.90 Unspecified dementia, unspecified severity, without behavioral disturbance, psychotic disturbance, mood disturbance, and anxiety; E78.5 Hyperlipidemia, unspecified; J45.909 Unspecified asthma, uncomplicated; K21.9 Gastro-esophageal reflux disease without esophagitis; F31.9 Bipolar disorder, unspecified; F41.9 Anxiety disorder, unspecified; Z79.899 Other long term (current) drug therapy; Y08.09XA Assault by strike by other specified type of sport equipment, initial encounter; Y93.89 Activity, other specified; Y92.89 Other specified places as the place of occurrence of the external cause; Y99.8 Other external cause status
CPT/HCPCS: 99285; 72125; 12011; 90471; 90715; 70450; A6403; J3490

== ENCOUNTER 2023-01-14 15:29 | Emergency (ER) | payer OTHER ==
[~2023-01-14] VITALS: Ht 175.3 cm; Wt 70.3 kg
[~2023-01-14 15:29] MED LIST changes: +CYCL10TA9 PO
[2023-01-14 15:43] VITALS: BP 115/70
[2023-01-14] MEDS ORDERED: BACITRACIN ZINC OINT PACKET 1 EA PACKET TP ONE ×2 (16:00→16:17)
[2023-01-14] MEDS ORDERED: ACETAMINOPHEN ES 500 MG TABLET PO ONE (16:00)
[2023-01-14] MEDS ORDERED: BACI30OI9 TP (16:11)
[2023-01-14] MEDS ORDERED: ACETAMINOPHEN ES 500 MG TABLET ONE (16:17)
== END 2023-01-14 16:23 | disposition home or self-care (01) ==
LOC: ER 15:37
DX: S01.01XD Laceration without foreign body of scalp, subsequent encounter (principal); G40.909 Epilepsy, unspecified, not intractable, without status epilepticus; E78.5 Hyperlipidemia, unspecified; J45.909 Unspecified asthma, uncomplicated; K21.9 Gastro-esophageal reflux disease without esophagitis; F31.9 Bipolar disorder, unspecified; F41.9 Anxiety disorder, unspecified; Z79.899 Other long term (current) drug therapy; X58.XXXD Exposure to other specified factors, subsequent encounter

== ENCOUNTER 2023-06-10 15:55 | Inpatient (IN) | payer OTHER ==
[~2023-06-10] VITALS: Ht 177.8 cm; Wt 75.3 kg
[~2023-06-10 15:55] MED LIST changes: +BACI30OI9 TP
[2023-06-10 16:50] LABS: BASOPHILS # (AUTO) 0.1 K/uL (0.0-0.2); BASOPHILS % (AUTO) 1.4 % (0.0-2.0); EOSINOPHILS % (AUTO) 0.4 % (0.0-6.0); HEMATOCRIT 41 % (39-51); HEMOGLOBIN 13.5 g/dL (13.5-17.5); LYMPHOCYTES # (AUTO) 0.9 K/uL (0.8-4.8); MEAN CORPUSCULAR HEMOGLOBIN 30 PG (26.0-33.0); MEAN CORPUSCULAR HGB CONC 33 g/dl (31.0-36.0); MEAN CORPUSCULAR VOLUME 92 fL (80-96); MONOCYTES # (AUTO) 0.4 K/uL (0.1-1.30); MONOCYTES % (AUTO) 5.4 % (2.0-12.0); NEUTROPHILS # (AUTO) 5.2 K/uL (1.8-8.9); NEUTROPHILS % (AUTO) 78.8 % (43.0-81.0); PLATELET COUNT (AUTO) 127 K/uL (150-450); RED BLOOD CELL COUNT(AUTO) 4.46 MIL/uL (4.5-6.0); RED CELL DISTRIBUTION WIDTH 15.3 % (11.5-15.0); WHITE BLOOD COUNT (AUTO) 6.6 K/uL (4.3-11.0)
[2023-06-10] MEDS ORDERED: IV NS 0.9% 1,000 ML BAG IV ONE ×2 (17:00→18:30)
[2023-06-10] MEDS ORDERED: THIAMINE HCL 100 MG TABLET PO ONE (17:00)
[2023-06-10] MEDS ORDERED: THIAMINE HCL 100 MG TABLET ONE (17:12)
[2023-06-10 17:37] LABS: CARBON DIOXIDE 20 mmol/L (21-32); CHLORIDE 101 mmol/L (98-107); CREATININE 0.8 mg/dL (0.6-1.3); GLUCOSE 82 mg/dL (74-106); SODIUM SERUM 138 mmol/L (136-145); UREA NITROGEN, BLOOD 14 mg/dL (7-18)
[2023-06-10 17:50] LABS: ACETAMINOPHEN 0 ug/ml (10-30); ALANINE AMINOTRANSFERASE 697 U/L (12-78); ALBUMIN 3.6 g/dL (3.4-5.0); ALCOHOL, BLOOD < 3 mg/dL (0-10); ALKALINE PHOSPHATASE 55 U/L (46-116); ASPARTATE AMINOTRANSFERASE 1555 U/L (15-37); BILIRUBIN,DIRECT 0.1 mg/dL (0.0-0.2); BILIRUBIN,TOTAL 0.5 mg/dL (0.2-1.0); SALICYLATE 4.9 mg/dL (2.8-20.0); THYROID STIMULATING HORMONE 6.748 uIU/mL (0.358-3.74); TOTAL PROTEIN, SERUM 7.3 g/dL (6.4-8.2)
[2023-06-10] MEDS ORDERED: MAGNESIUM HYDROXIDE 30 ML UDC PO PRN (22:30)
[2023-06-10] MEDS ORDERED: ONDANSETRON HCL/PF 4 MG/2 ML VIAL IVP PRN (22:30)
[2023-06-10] MEDS ORDERED: Z GUARD REMEDY 4 OZ OINT TP PRN (22:30)
[2023-06-10] MEDS ORDERED: MAG HYDROX/AL HYDROX/SIMETH 30 ML UDC PO PRN (22:30)
[2023-06-10 23:00] VITALS: BP 125/91; TEMP 98.1; O2SAT 96
[2023-06-10] MEDS: OLANZAPINE 10 MG TABLET PO SCH (23:34)
[2023-06-10] MEDS: IV NS 0.9% 1,000 ML IV PRN (23:35)
[2023-06-11] MEDS: ACETAMINOPHEN 325 MG TABLET PO PRN ×2 (00:14→14:40)
[2023-06-11 01:02] LABS: INR 0.96 (0.91-1.10); PROTHROMBIN TIME 10.2 SECS (9.2-11.1)
[2023-06-11 07:00] VITALS: BP 123/88; TEMP 98.8; O2SAT 94
[2023-06-11] MEDS: PANTOPRAZOLE 40 MG TABLET.DR PO SCH (08:15)
[2023-06-11] MEDS: ZIPRASIDONE 20 MG CAPSULE PO SCH ×2 (08:37→17:40)
[2023-06-11] MEDS: busPIRone 5 MG TABLET PO SCH ×3 (08:37→17:40)
[2023-06-11] MEDS: THIAMINE HCL 100 MG TABLET PO SCH (08:37)
[2023-06-11] MEDS ORDERED: clonazePAM 1 MG TABLET PO SCH (09:00)
[2023-06-11] MEDS: IV NS 0.9% 1,000 ML IV PRN ×2 (09:57→19:27)
[2023-06-11 12:18] LABS: BASOPHILS % (AUTO) 0.7 % (0.0-2.0); EOSINOPHILS # (AUTO) 0.1 K/uL (0.0-0.7); EOSINOPHILS % (AUTO) 1.5 % (0.0-6.0); HEMATOCRIT 41 % (39-51); HEMOGLOBIN 13.3 g/dL (13.5-17.5); LYMPHOCYTES # (AUTO) 1.1 K/uL (0.8-4.8); LYMPHOCYTES % (AUTO) 25.4 % (20.0-44.0); MEAN CORPUSCULAR HEMOGLOBIN 31 PG (26.0-33.0); MEAN CORPUSCULAR HGB CONC 33 g/dl (31.0-36.0); MEAN CORPUSCULAR VOLUME 94 fL (80-96); MONOCYTES # (AUTO) 0.2 K/uL (0.1-1.30); MONOCYTES % (AUTO) 5.3 % (2.0-12.0); NEUTROPHILS # (AUTO) 2.9 K/uL (1.8-8.9); NEUTROPHILS % (AUTO) 67.1 % (43.0-81.0); PLATELET COUNT (AUTO) 135 K/uL (150-450); RED BLOOD CELL COUNT(AUTO) 4.35 MIL/uL (4.5-6.0); RED CELL DISTRIBUTION WIDTH 15.7 % (11.5-15.0); WHITE BLOOD COUNT (AUTO) 4.4 K/uL (4.3-11.0)
[2023-06-11 12:48] LABS: ALBUMIN 3.1 g/dL (3.4-5.0); BILIRUBIN,DIRECT 0.1 mg/dL (0.0-0.2); BILIRUBIN,TOTAL 0.6 mg/dL (0.2-1.0); CALCIUM, SERUM 9.1 mg/dL (8.5-10.1); CREATININE 0.7 mg/dL (0.6-1.3); POTASSIUM 3.3 mmol/L (3.5-5.1); TOTAL PROTEIN, SERUM 6.8 g/dL (6.4-8.2)
[2023-06-11] MEDS: CHLORDIAZEPOXIDE HCL 25 MG CAPSULE PO SCH ×3 (14:40→20:41)
[2023-06-11] MEDS ORDERED: LORAZEPAM INJ 2 MG/ML VIAL IV PRN (15:00)
[2023-06-11] MEDS: SERTRALINE HCL 50 MG TABLET PO SCH (17:39)
[2023-06-11] MEDS: FINASTERIDE (5 MG) 5 MG TABLET PO SCH (17:40)
[2023-06-11] MEDS: DIVALPROEX SODIUM 500 MG TABLET.DR PO SCH (17:40)
[2023-06-11 19:36] VITALS: BP 125/93; TEMP 98.6; O2SAT 96
[2023-06-11 20:00] VITALS: BP 131/93; TEMP 98.6; O2SAT 94
[2023-06-11] MEDS: OLANZAPINE 10 MG TABLET PO SCH (21:41)
[2023-06-11 23:00] VITALS: BP 123/76; TEMP 98; O2SAT 98
[2023-06-12] MEDS: CYCLOBENZAPRINE 10 MG TABLET PO PRN ×3 (03:05→15:48)
[2023-06-12] MEDS: IV NS 0.9% 1,000 ML IV PRN ×2 (05:18→18:20)
[2023-06-12 05:57] LABS: BASOPHILS % (AUTO) 0.8 % (0.0-2.0); EOSINOPHILS # (AUTO) 0.2 K/uL (0.0-0.7); EOSINOPHILS % (AUTO) 3.2 % (0.0-6.0); HEMATOCRIT 38 % (39-51); HEMOGLOBIN 12.8 g/dL (13.5-17.5); LYMPHOCYTES # (AUTO) 1.6 K/uL (0.8-4.8); LYMPHOCYTES % (AUTO) 30.6 % (20.0-44.0); MEAN CORPUSCULAR HEMOGLOBIN 31 PG (26.0-33.0); MEAN CORPUSCULAR HGB CONC 33 g/dl (31.0-36.0); MEAN CORPUSCULAR VOLUME 93 fL (80-96); MONOCYTES # (AUTO) 0.4 K/uL (0.1-1.30); MONOCYTES % (AUTO) 6.9 % (2.0-12.0); NEUTROPHILS % (AUTO) 58.5 % (43.0-81.0); PLATELET COUNT (AUTO) 140 K/uL (150-450); RED BLOOD CELL COUNT(AUTO) 4.11 MIL/uL (4.5-6.0); RED CELL DISTRIBUTION WIDTH 15.2 % (11.5-15.0); WHITE BLOOD COUNT (AUTO) 5.2 K/uL (4.3-11.0)
[2023-06-12 06:37] LABS: ALBUMIN 2.9 g/dL (3.4-5.0); BILIRUBIN,TOTAL 0.4 mg/dL (0.2-1.0); CALCIUM, SERUM 9.1 mg/dL (8.5-10.1); CREATININE 0.6 mg/dL (0.6-1.3); MAGNESIUM 1.8 mg/dL (1.8-2.4); POTASSIUM 2.9 mmol/L (3.5-5.1); TOTAL PROTEIN, SERUM 6.3 g/dL (6.4-8.2)
[2023-06-12] MEDS: PANTOPRAZOLE 40 MG TABLET.DR PO SCH (07:35)
[2023-06-12 08:00] VITALS: BP 128/91; TEMP 98.1; O2SAT 91
[2023-06-12 08:06] LABS: HBSAG SCREEN Negative (Negative); HEPATITIS A AB, IgM Negative (Negative); HEPATITIS B CORE AB, IgM Negative (Negative)
[2023-06-12] MEDS: POTASSIUM CHLORIDE 20 MEQ TAB.PRT.SR PO SCH ×3 (08:20→10:22)
[2023-06-12] MEDS: THIAMINE HCL 100 MG TABLET PO SCH (08:20)
[2023-06-12] MEDS: ZIPRASIDONE 20 MG CAPSULE PO SCH ×2 (08:20→17:10)
[2023-06-12] MEDS: CHLORDIAZEPOXIDE HCL 25 MG CAPSULE PO SCH ×4 (08:20→20:15)
[2023-06-12] MEDS: busPIRone 5 MG TABLET PO SCH ×3 (08:21→17:10)
[2023-06-12] MEDS: ACETAMINOPHEN 325 MG TABLET PO PRN ×3 (08:46→21:41)
[2023-06-12] MEDS ORDERED: POTASSIUM CHLORIDE 20 MEQ TAB.PRT.SR PO ONE (09:00)
[2023-06-12 11:47] LABS: CREATININE, URINE 17.7 MG/DL (30.0-125.0); URINE TOTAL PROTEIN 3.6 mg/dL (0-11.9)
[2023-06-12 11:57] LABS: APPEARANCE,URINE CLEAR (CLEAR); BILIRUBIN,URINE NEGATIVE (NEGATIVE); BLOOD, URINE NEGATIVE Ery/uL (NEGATIVE); COLOR,URINE YELLOW (YELLOW); KETONES,URINE NEGATIVE (NEGATIVE); LEUKOCYTE ESTERASE ,URINE NEGATIVE (NEGATIVE); NITRITE, URINE NEGATIVE (NEGATIVE); PROTEIN,URINE NEGATIVE (NEGATIVE); UGLUCOSE NEGATIVE (NEGATIVE); UROBILINOGEN,URINE 0.2 EU/dL (0.2)
[2023-06-12 12:59] LABS: EOSINOPHIL,URINE None Seen
[2023-06-12 14:43] LABS: CALCIUM, SERUM 8.8 mg/dL (8.5-10.1); CREATININE 0.7 mg/dL (0.6-1.3); POTASSIUM 3.8 mmol/L (3.5-5.1)
[2023-06-12 16:00] VITALS: BP 130/93; TEMP 97.7; O2SAT 94
[2023-06-12] MEDS: DIVALPROEX SODIUM 500 MG TABLET.DR PO SCH (17:10)
[2023-06-12] MEDS: FINASTERIDE (5 MG) 5 MG TABLET PO SCH (17:10)
[2023-06-12] MEDS: SERTRALINE HCL 50 MG TABLET PO SCH (17:13)
[2023-06-12 20:00] VITALS: BP 126/97; TEMP 97.7; O2SAT 95
[2023-06-12] MEDS: OLANZAPINE 10 MG TABLET PO SCH (21:41)
[2023-06-13 08:00] VITALS: BP 134/80; TEMP 98.1; O2SAT 94
[2023-06-13] MEDS: THIAMINE HCL 100 MG TABLET PO SCH (08:12)
[2023-06-13] MEDS: PANTOPRAZOLE 40 MG TABLET.DR PO SCH (08:12)
[2023-06-13] MEDS: ZIPRASIDONE 20 MG CAPSULE PO SCH (08:12)
[2023-06-13] MEDS: CHLORDIAZEPOXIDE HCL 25 MG CAPSULE PO SCH ×2 (08:13→13:04)
[2023-06-13] MEDS: busPIRone 5 MG TABLET PO SCH ×2 (08:13→13:04)
[2023-06-13 13:03] LABS: BASOPHILS % (AUTO) 0.9 % (0.0-2.0); EOSINOPHILS # (AUTO) 0.1 K/uL (0.0-0.7); HEMATOCRIT 40 % (39-51); HEMOGLOBIN 13.1 g/dL (13.5-17.5); LYMPHOCYTES # (AUTO) 1.2 K/uL (0.8-4.8); LYMPHOCYTES % (AUTO) 29.8 % (20.0-44.0); MEAN CORPUSCULAR HEMOGLOBIN 31 PG (26.0-33.0); MEAN CORPUSCULAR HGB CONC 33 g/dl (31.0-36.0); MEAN CORPUSCULAR VOLUME 93 fL (80-96); MONOCYTES # (AUTO) 0.3 K/uL (0.1-1.30); MONOCYTES % (AUTO) 7.4 % (2.0-12.0); NEUTROPHILS # (AUTO) 2.4 K/uL (1.8-8.9); NEUTROPHILS % (AUTO) 59.9 % (43.0-81.0); PLATELET COUNT (AUTO) 175 K/uL (150-450); RED BLOOD CELL COUNT(AUTO) 4.27 MIL/uL (4.5-6.0); RED CELL DISTRIBUTION WIDTH 15.6 % (11.5-15.0); WHITE BLOOD COUNT (AUTO) 3.9 K/uL (4.3-11.0)
[2023-06-13 13:19] LABS: CREATININE 0.8 mg/dL (0.6-1.3)
[2023-06-13 13:21] LABS: CALCIUM, SERUM 9.2 mg/dL (8.5-10.1); CREATININE 0.8 mg/dL (0.6-1.3); MAGNESIUM 1.8 mg/dL (1.8-2.4); PHOSPHORUS 4.3 mg/dL (2.5-4.9); POTASSIUM 3.4 mmol/L (3.5-5.1)
[2023-06-14] MEDS ORDERED: LEVOTHYROXINE SODIUM 25 MCG TABLET PO SCH (07:30)
== END 2023-06-13 15:30 | disposition home health service (06) | DRG 351 ==
LOC: ER 15:55 → MED 21:52
PROVIDERS: ADMIT Internal Medicine; ATTEND Nurse Practitioner Acute Care
DX: M62.82 Rhabdomyolysis (principal); K70.10 Alcoholic hepatitis without ascites; E03.9 Hypothyroidism, unspecified; E78.5 Hyperlipidemia, unspecified; G40.909 Epilepsy, unspecified, not intractable, without status epilepticus; E87.6 Hypokalemia; F10.239 Alcohol dependence with withdrawal, unspecified; Y90.0 Blood alcohol level of less than 20 mg/100 ml; J45.909 Unspecified asthma, uncomplicated; R74.01 Elevation of levels of liver transaminase levels; F32.9 Major depressive disorder, single episode, unspecified; F31.9 Bipolar disorder, unspecified; Z59.00 Homelessness unspecified
CPT/HCPCS: 36415; 76700-TC; 80048-TC; 80053-TC; 80076-TC; 82550-TC; 82553; 82565-TC; 82570-TC; 82962-TC; 83735-TC; 84100-TC; 84300-TC; 84439-TC; 84443-TC; 85025-TC; 85610-TC; 87081-TC; 93970-TC; 97112-TC; 97116-TC; 97530-TC; A4223; G0378; G0480; J2060; J7030

== ENCOUNTER 2024-02-20 04:01 | Inpatient (IN) | payer OTHER ==
[~2024-02-20] VITALS: Ht 175.3 cm; Wt 81.2 kg
[2024-02-20 05:01] LABS: BASOPHILS % (AUTO) 0.7 % (0.0-2.0); EOSINOPHILS % (AUTO) 0.4 % (0.0-6.0); HEMATOCRIT 37 % (39-51); HEMOGLOBIN 12.5 g/dL (13.5-17.5); LYMPHOCYTES # (AUTO) 0.9 K/uL (0.8-4.8); LYMPHOCYTES % (AUTO) 15.1 % (20.0-44.0); MEAN CORPUSCULAR HEMOGLOBIN 32 PG (26.0-33.0); MEAN CORPUSCULAR HGB CONC 34 g/dl (31.0-36.0); MEAN CORPUSCULAR VOLUME 95 fL (80-96); MONOCYTES # (AUTO) 0.8 K/uL (0.1-1.30); MONOCYTES % (AUTO) 12.5 % (2.0-12.0); NEUTROPHILS # (AUTO) 4.4 K/uL (1.8-8.9); NEUTROPHILS % (AUTO) 71.3 % (43.0-81.0); PLATELET COUNT (AUTO) 142 K/uL (150-450); RED BLOOD CELL COUNT(AUTO) 3.87 MIL/uL (4.5-6.0); RED CELL DISTRIBUTION WIDTH 14.1 % (11.5-15.0); WHITE BLOOD COUNT (AUTO) 6.2 K/uL (4.3-11.0)
[2024-02-20 05:11] LABS: APPEARANCE,URINE CLEAR (CLEAR); BILIRUBIN,URINE 2+ (NEGATIVE); BLOOD, URINE NEGATIVE Ery/uL (NEGATIVE); COLOR,URINE YELLOW (YELLOW); KETONES,URINE 3+ mg/dL (NEGATIVE); LEUKOCYTE ESTERASE ,URINE NEGATIVE (NEGATIVE); NITRITE, URINE NEGATIVE (NEGATIVE); PH,URINE 6.5 (5.0-8.0); PROTEIN,URINE 1+ mg/dl (NEGATIVE); UGLUCOSE NEGATIVE (NEGATIVE)
[2024-02-20 05:16] LABS: INR 1.03 (0.91-1.10); PROTHROMBIN TIME 10.9 SECS (9.2-11.1)
[2024-02-20 05:19] LABS: LACTIC ACID 1.7 mmol/L (0.4-2.0)
[2024-02-20 05:23] LABS: ALBUMIN 2.9 g/dL (3.4-5.0); BILIRUBIN,TOTAL 0.5 mg/dL (0.2-1.0); CALCIUM, SERUM 8.2 mg/dL (8.5-10.1); CREATININE 0.7 mg/dL (0.6-1.3); TOTAL PROTEIN, SERUM 6.4 g/dL (6.4-8.2)
[2024-02-20 05:43] LABS: AMPHETAMINE, URINE NEGATIVE (NEGATIVE); BARBITURATE, URINE NEGATIVE (NEGATIVE); COCCAINE, URINE NEGATIVE (NEGATIVE); OPIATE, URINE NEGATIVE (NEGATIVE); PHENCYCLIDINE SCREEN,URINE NEGATIVE (NEGATIVE)
[2024-02-20 05:49] LABS: BENZODIAZEPINE, URINE POSITIVE (NEGATIVE); CANNABINOID, URINE POSITIVE (NEGATIVE)
[2024-02-20 06:09] LABS: ADD URINE CULTURE NO; BACTERIA,URINE Few /HPF (None Seen); RBC,URINE NONE SEEN /HPF (0-2); WBC,URINE NONE SEEN /HPF (0-3)
[2024-02-20 06:10] LABS: MUCUS,URINE Moderate /LPF (None Seen); SQUAMOUS EPITHELIAL CELL,UR None Seen /HPF (None Seen)
[2024-02-20] MEDS ORDERED: PANTOPRAZOLE 40 MG VIAL ONE (06:35)
[2024-02-20] MEDS: PANTOPRAZOLE 80 MG in IV NS 0.9% 500 ML IV ONE (06:44)
[2024-02-20] MEDS: PANTOPRAZOLE 80 MG in IV NS 0.9% 100 ML IV ONE (06:44)
[2024-02-20] MEDS ORDERED: PIPERACI/TAZO 3.375GM/D5W 50ML PB IV ONE (07:30)
[2024-02-20] MEDS: POTASSIUM CL. PREMIX PERIPHER. 50 ML IV SCH (07:31)
[2024-02-20] MEDS: PIPERACILLIN /TAZOBACTAM 3.375 G in IV D5W 50 ML IV ONE (07:31)
[2024-02-20] MEDS ORDERED: ONDA-97 PO (08:15)
[2024-02-20] MEDS ORDERED: FOLI0.4T6 PO (08:15)
[2024-02-20] MEDS ORDERED: GABA-532 PO (08:15)
[2024-02-20] MEDS ORDERED: FLUT1BLS16 IH (08:15)
[2024-02-20] MEDS ORDERED: ALBU8.5H8 IH (08:15)
[2024-02-20] MEDS ORDERED: ROSU40TA PO (08:15)
[2024-02-20] MEDS ORDERED: QUET300T2 PO (08:15)
[2024-02-20] MEDS ORDERED: DOXE10CA2 PO (08:15)
[2024-02-20] MEDS ORDERED: IBUP-1957 PO (08:15)
[2024-02-20] MEDS ORDERED: DIVA-78 PO (08:15)
[2024-02-20] MEDS ORDERED: MORPHINE SULFATE INJ 2 MG/ML DISP.SYRIN ONE (08:59)
[2024-02-20] MEDS: MORPHINE SULFATE INJ 2 MG/ML DISP.SYRIN IV ONE (09:00)
[2024-02-20 10:30] VITALS: BP 121/98; TEMP 98.2; O2SAT 97
[2024-02-20] MEDS: METRONIDAZOLE 500 MG TABLET PO SCH (13:18)
[2024-02-20] MEDS ORDERED: ONDANSETRON HCL/PF 4 MG/2 ML VIAL IVP PRN (14:30)
[2024-02-20] MEDS ORDERED: MAGNESIUM HYDROXIDE 30 ML UDC PO PRN (14:30)
[2024-02-20] MEDS: LORAZEPAM 0.5 MG TABLET PO PRN (15:08)
[2024-02-20] MEDS: ACETAMINOPHEN 325 MG TABLET PO PRN (15:08)
[2024-02-20 16:00] VITALS: BP 139/98; TEMP 98.2; O2SAT 93
[2024-02-20] MEDS ORDERED: ALBUTEROL FS 2.5 MG/3 ML VIAL.NEB NEB PRN (17:30)
[2024-02-20] MEDS ORDERED: IPRATROPIUM NEB FS 0.5 MG/2.5 ML AMPUL.NEB NEB PRN (17:30)
[2024-02-20] MEDS ORDERED: LORAZEPAM INJ 2 MG/ML VIAL IV PRN (17:30)
[2024-02-20] MEDS: CHLORDIAZEPOXIDE HCL 25 MG CAPSULE PO SCH (17:39)
[2024-02-20] MEDS: DICYCLOMINE HCL 10 MG CAPSULE PO SCH (17:40)
[2024-02-20] MEDS: AMOX/CLAVULANATE 875 MG TABLET PO SCH (20:18)
[2024-02-20] MEDS: DIVALPROEX SODIUM 500 MG TABLET.DR PO SCH (20:18)
[2024-02-20] MEDS: IV D5/0.45 NACL 1,000 ML IV PRN (20:59)
[2024-02-20 21:03] VITALS: BP 117/94; TEMP 98.4; O2SAT 96
[2024-02-20] MEDS: QUETIAPINE FUMARATE 100 MG TABLET PO SCH (21:16)
[2024-02-20] MEDS: DOXEPIN HCL 10 MG CAPSULE PO SCH (21:16)
[2024-02-20] MEDS: GABAPENTIN 100 MG CAPSULE PO SCH (21:16)
[2024-02-21 08:00] VITALS: BP 90/68; TEMP 97.6; O2SAT 96
[2024-02-21] MEDS ORDERED: FLUTICASONE/SALMETEROL 1 DISK IH SCH (09:00)
[2024-02-21] MEDS: busPIRone 5 MG TABLET PO SCH (09:36)
[2024-02-21] MEDS: PANTOPRAZOLE 40 MG TABLET.DR PO SCH (09:36)
[2024-02-21] MEDS: THIAMINE HCL 100 MG TABLET PO SCH (09:37)
[2024-02-21] MEDS: FINASTERIDE (5 MG) 5 MG TABLET PO SCH (09:37)
[2024-02-21] MEDS: FOLIC ACID 1 MG TABLET PO SCH (09:37)
[2024-02-21] MEDS: ATORVASTATIN 40 MG TABLET PO SCH (09:37)
[2024-02-21] MEDS: SERTRALINE HCL 50 MG TABLET PO SCH (09:38)
[2024-02-21 10:59] LABS: BASOPHILS % (AUTO) 0.5 % (0.0-2.0); EOSINOPHILS # (AUTO) 0.1 K/uL (0.0-0.7); EOSINOPHILS % (AUTO) 0.9 % (0.0-6.0); HEMATOCRIT 37 % (39-51); HEMOGLOBIN 12.6 g/dL (13.5-17.5); LYMPHOCYTES # (AUTO) 1.6 K/uL (0.8-4.8); LYMPHOCYTES % (AUTO) 26.2 % (20.0-44.0); MEAN CORPUSCULAR HEMOGLOBIN 32 PG (26.0-33.0); MEAN CORPUSCULAR HGB CONC 34 g/dl (31.0-36.0); MEAN CORPUSCULAR VOLUME 94 fL (80-96); MONOCYTES # (AUTO) 0.6 K/uL (0.1-1.30); MONOCYTES % (AUTO) 9.9 % (2.0-12.0); NEUTROPHILS # (AUTO) 3.8 K/uL (1.8-8.9); NEUTROPHILS % (AUTO) 62.5 % (43.0-81.0); PLATELET COUNT (AUTO) 148 K/uL (150-450); RED BLOOD CELL COUNT(AUTO) 3.97 MIL/uL (4.5-6.0); RED CELL DISTRIBUTION WIDTH 14.2 % (11.5-15.0); WHITE BLOOD COUNT (AUTO) 6.1 K/uL (4.3-11.0)
[2024-02-21 11:09] LABS: ALBUMIN 2.7 g/dL (3.4-5.0); BILIRUBIN,TOTAL 0.5 mg/dL (0.2-1.0); CALCIUM, SERUM 8.2 mg/dL (8.5-10.1); CREATININE 0.7 mg/dL (0.6-1.3); POTASSIUM 3.6 mmol/L (3.5-5.1); TOTAL PROTEIN, SERUM 6.2 g/dL (6.4-8.2)
[2024-02-21] MEDS ORDERED: AMOX-430 PO (11:57)
[2024-02-21] MEDS ORDERED: CHLO25CA22 PO (11:57)
[2024-02-21] MEDS ORDERED: METR500T PO (11:57)
[2024-02-21] MEDS ORDERED: DICY10CA37 PO (11:57)
[2024-02-21 16:00] VITALS: BP 107/80; TEMP 98.1; O2SAT 96
== END 2024-02-21 16:46 | disposition home or self-care (01) | DRG 245 ==
LOC: ER 04:22 → MED 09:32
PROVIDERS: ADMIT Nurse Practitioner Family; ATTEND Nurse Practitioner Family
DX: K51.30 Ulcerative (chronic) rectosigmoiditis without complications (principal); D69.6 Thrombocytopenia, unspecified; E44.0 Moderate protein-calorie malnutrition; K92.2 Gastrointestinal hemorrhage, unspecified; E88.09 Other disorders of plasma-protein metabolism, not elsewhere classified; K70.10 Alcoholic hepatitis without ascites; G40.909 Epilepsy, unspecified, not intractable, without status epilepticus; D64.9 Anemia, unspecified; E78.5 Hyperlipidemia, unspecified; E87.6 Hypokalemia; J45.909 Unspecified asthma, uncomplicated; K21.9 Gastro-esophageal reflux disease without esophagitis; R74.01 Elevation of levels of liver transaminase levels; F10.10 Alcohol abuse, uncomplicated; Y90.3 Blood alcohol level of 60-79 mg/100 ml; F31.9 Bipolar disorder, unspecified
CPT/HCPCS: 36415; 80053-TC; 81001; 83605-TC; 83690-TC; 83735-TC; 85025-TC; 85610-TC; 86850-TC; 89055; A4223; G0378; G0480; J2270; J2470; J2543; J3480; J3490; J7030; J7040; J7060